=== PATIENT | female | born 1945 | race Caucasian/White ===

== ENCOUNTER → 2019-05-15 | Outpatient (REF) | payer MEDICARE ==
[2019-05-15 17:41] LABS: APPEARANCE, URINE CLOUDY (CLEAR); BACTERIA, URINE AUTO 2+ (NEGATIVE); BILIRUBIN, URINE AUTO NEGATIVE (NEGATIVE); BLOOD, URINE BLOOD NEGATIVE (NEGATIVE); CALCIUM OXALATE CRYSTALS SMALL; COLOR, URINE AMBER (YELLOW); GLUCOSE, URINE (UA) AUTO NEGATIVE (NEGATIVE); KETONE, URINE AUTO TRACE mg/dL (NEGATIVE); LEUKOCYTE ESTERASE, URINE AUTO 1+ (NEGATIVE); MUCUS, URINE SMALL (NEGATIVE); NITRITE, URINE AUTO POSITIVE (NEGATIVE); PROTEIN, URINE AUTO 1+ mg/dL (NEGATIVE); RBC, URINE AUTO 2 /HPF (0-3); SPECIFIC GRAVITY URINE AUTO 1.023 (1.002-1.035); SQUAMOUS EPITHELIAL CELL UR AU 1 /HPF (0-6); UROBILINOGEN, URINE AUTO 0.2 mg/dL (0.0-2.0); WBC, URINE AUTO 38 /HPF (0-3)
== END ==
LOC: M SFHCLACO 16:43
PROVIDERS: ATTEND Physician Assistant
DX: N30.01 Acute cystitis with hematuria (principal)

== ENCOUNTER 2019-08-22 13:08 | Emergency (ER) | payer MEDICARE ==
[~2019-08-22] VITALS: Ht 152.4 cm; Wt 55.9 kg
[2019-08-22] MEDS ORDERED: NS 1,000 ML IV SCH (13:19)
[2019-08-22] MEDS ORDERED: ACETAMINOPHEN 325 MG TAB PO ONE (13:30)
[2019-08-22] MEDS ORDERED: IPRATROPIUM 0.5MG/ALBUTEROL 2.5MG INH SOL UD 3ML (DUONEB)(J7620) NEB ONE (13:30)
[2019-08-22 13:42] LABS: VENOUS BASE EXCESS -5.3 (-2.0-2.0); VENOUS HCO3 20.7 MEQ/L (23.0-27.0); VENOUS O2 SATURATION 49.4 % (60.0-80.0); VENOUS PARTIAL PRESSURE CO2 42.3 mmHg (38.0-50.0); VENOUS PARTIAL PRESSURE O2 28.1 mmHg (30.0-50.0); VENOUS PH 7.308 UNITS (7.330-7.430); VENOUS STANDARD HCO3 19.1 MEQ/L
[2019-08-22 13:46] LABS: BASO % 0.3 % (0.0-1.0); EOS % 0.1 % (0.0-3.0); HEMATOCRIT 43.6 % (36.0-47.0); HEMOGLOBIN 13.4 g/dl (12.0-15.5); LYMPH # 2.1 10^3/uL (1.5-5.0); LYMPH % 19.2 % (24.0-44.0); MEAN CORPUSCULAR HEMOGLOBIN 29.4 pg (27.0-33.0); MEAN CORPUSCULAR HGB CONC 30.7 g/dl (32.0-36.5); MEAN CORPUSCULAR VOLUME 95.6 fl (80.0-96.0); MONO % 9.3 % (0.0-5.0); NEUTROPHILS # 7.6 10^3/uL (1.5-8.5); NEUTROPHILS % 70.7 % (36.0-66.0); PLATELET COUNT, AUTOMATED 219 10^3/uL (150-450); RED BLOOD COUNT 4.56 10^6/uL (4.00-5.40); WHITE BLOOD COUNT 10.8 10^3/uL (4.0-10.0)
[2019-08-22 13:57] VITALS: O2SAT 95
[2019-08-22 14:11] LABS: INFLUENZA A AMPLIFICATION NEGATIVE (NEGATIVE); INFLUENZA B AMPLIFICATION NEGATIVE (NEGATIVE)
[2019-08-22 14:21] LABS: ALBUMIN 3.2 GM/DL (3.2-5.2); ALT/SGPT 38 U/L (12-78); BILIRUBIN,DIRECT 0.3 MG/DL (0.0-0.2); BILIRUBIN,TOTAL 0.5 MG/DL (0.2-1.0); BLOOD UREA NITROGEN 16 MG/DL (7-18); CALCIUM LEVEL 8.9 MG/DL (8.8-10.2); CARBON DIOXIDE LEVEL 21 MEQ/L (21-32); CHLORIDE LEVEL 105 MEQ/L (98-107); CK-MB VALUE MASS < 1.0 NG/ML (<3.6); CPK CREATINE PHOSPHOKINASE 85 U/L (26-192); CREATININE FOR GFR 1.19 MG/DL (0.55-1.30); GLOMERULAR FILTRATION RATE 47.2 (>39); GLUCOSE, FASTING 152 MG/DL (70-100); MB/CK RELATIVE INDEX 1.18 (< OR =4); POTASSIUM SERUM 4.4 MEQ/L (3.5-5.1); SODIUM LEVEL 136 MEQ/L (136-145); TOTAL PROTEIN 7.8 GM/DL (6.4-8.2); TROPONIN I < 0.02 NG/ML (< 0.10)
--- NOTE | 2019-08-22 14:24 | REP ---
Clinical: Cough and dyspnea. Technique: AP and lateral. Findings: Mediastinum and cardiac silhouette are normal. Subtle right basilar atelectasis is suspected. No effusion. No pneumothorax. Skeletal structures intact. Impression: Subtle right basilar atelectasis. Electronically Signed by Kenny Whitten MD 08/22/2019 02:15 P
[2019-08-22] MEDS ORDERED: DOXY100C37 PO (14:49)
[2019-08-22] MEDS ORDERED: PROAAER10 INH (14:49)
[2019-08-22] MEDS ORDERED: DOXYCYCLINE HYCLATE 100 MG TAB PO ONE (15:00)
[2019-08-22] MEDS ORDERED: NORT75CA2 PO (15:06)
[2019-08-22] MEDS ORDERED: MUCI600T31 PO (15:06)
[2019-08-22] MEDS ORDERED: ACET-683 PO (15:06)
[2019-08-22] MEDS ORDERED: QUET1TAB7 PO (15:06)
[2019-08-22] MEDS ORDERED: CARV6.25 PO (15:06)
[2019-08-22] MEDS ORDERED: SENN1TAB41 PO (15:06)
[2019-08-22] MEDS ORDERED: DULO1CAP6 PO (15:06)
[2019-08-22] MEDS ORDERED: ROPI2TAB PO (15:06)
[2019-08-22] MEDS ORDERED: TAMI30CA PO (15:06)
[2019-08-22] MEDS ORDERED: QUET5TAB PO (15:06)
[2019-08-22] MEDS ORDERED: DITR5TAB PO (15:06)
[2019-08-22] MEDS ORDERED: QUET1TAB8 PO (15:06)
[2019-08-22] MEDS ORDERED: TRAM50TA2 PO (15:06)
[2019-08-22] MEDS ORDERED: VITA200028 PO (15:06)
[2019-08-22] MEDS ORDERED: DONETAB5 PO (15:06)
[2019-08-22] MEDS ORDERED: CVS5CHW2 PO (15:06)
[2019-08-22] MEDS ORDERED: ATOR40TA75 PO (15:06)
[2019-08-22 15:40] VITALS: BP 148/81
--- NOTE | 2019-08-22 20:19 | ECGEPIP ---
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
== END 2019-08-22 15:50 | disposition home or self-care (01) ==
LOC: EDBD 13:08 → M ED 13:08
DX: J84.9 Interstitial pulmonary disease, unspecified (principal); Z88.5 Allergy status to narcotic agent; Z88.8 Allergy status to other drugs, medicaments and biological substances

== ENCOUNTER 2019-08-24 13:53 | Observation (INO) | payer MEDICARE ==
[~2019-08-24] VITALS: Ht 147.3 cm; Wt 51.5 kg
[~2019-08-24 13:53] MED LIST: ACET-683 PO; ATOR40TA75 PO; CARV6.25 PO; CVS5CHW2 PO; DITR5TAB PO; DONETAB5 PO; DOXY100C37 PO; DULO1CAP6 PO; MUCI600T31 PO; NORT75CA2 PO; PROAAER10 INH; QUET1TAB7 PO; QUET1TAB8 PO; QUET5TAB PO; ROPI2TAB PO; SENN1TAB41 PO; TAMI30CA PO; TRAM50TA2 PO; VITA200028 PO
--- NOTE | 2019-08-24 15:44 | ECGEPIP ---
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
[2019-08-24 15:46] LABS: ABG BASE EXCESS -6.2 (-2.0-2.0); ABG HCO3 16.5 MEQ/L (22.0-26.0); ABG O2 SATURATION 94.5 % (95.0-99.0); ABG PARTIAL PRESSURE CO2 25.5 mmHg (35.0-45.0); ABG PARTIAL PRESSURE O2 71.9 mmHg (75.0-100.0); ABG STANDARD HCO3 19.3 MEQ/L (22.0-26.0); ABG TOTAL CO2 17.3 MEQ/L (23.0-31.0)
[2019-08-24] MEDS: IPRATROPIUM 0.5MG/ALBUTEROL 2.5MG INH SOL UD 3ML (DUONEB)(J7620) NEB SCH ×2 (15:55→15:59)
[2019-08-24] MEDS ORDERED: methylPREDNISolone INJ 125 MG/2 ML VIAL (J2930) IV ONE (16:30)
[2019-08-24] MEDS ORDERED: OXYB5TAB10 PO (17:19)
[2019-08-24] MEDS ORDERED: DOXY-259 PO (17:19)
[2019-08-24] MEDS ORDERED: PROAAER10 INH (17:19)
[2019-08-24] MEDS ORDERED: DONE5TAB82 PO (17:19)
[2019-08-24] MEDS ORDERED: OMEP-172 PO (17:19)
[2019-08-24] MEDS ORDERED: OSEL75CA2 PO (17:19)
[2019-08-24] MEDS ORDERED: MELA1TAB9 PO (17:19)
[2019-08-24] MEDS ORDERED: LORA-622 PO (17:19)
[2019-08-24] MEDS ORDERED: guaiFENesin ER 600 MG TAB PO PRN (17:30)
[2019-08-24] MEDS ORDERED: MOM 30ML SUSPENSION UDC PO PRN (17:30)
[2019-08-24] MEDS ORDERED: ACETAMINOPHEN TAB 650MG DOSE (2X325MG) PO PRN (17:30)
--- NOTE | 2019-08-24 17:40 | REP ---
Chest x-ray: Two views. History: Shortness of breath. Comparison study August 22, 2019. Findings: There is plate-like atelectasis again noted in the right base. No definite infiltrate. Pleural angles are sharp. There are surgical clips in the right upper quadrant of the abdomen. Heart size is normal. Pulmonary vasculature is not increased. Impression: Plate-like atelectasis right base. No definite infiltrate. Electronically Signed by Theodore Pedersen MD 08/24/2019 06:43 P
[2019-08-24 18:07] LABS: HEMATOCRIT 37.8 % (36.0-47.0); HEMOGLOBIN 12.1 g/dl (12.0-15.5); MEAN CORPUSCULAR HEMOGLOBIN 29.5 pg (27.0-33.0); MEAN CORPUSCULAR VOLUME 92.2 fl (80.0-96.0); PLATELET COUNT, AUTOMATED 279 10^3/uL (150-450); WHITE BLOOD COUNT 14.1 10^3/uL (4.0-10.0)
--- NOTE | 2019-08-24 18:12 | HPEPDOC ---
[facility] Medical History & Physical Date of Admission Aug 24, 2019 Date of Service: Aug 24, 2019 Primary Care Physician: Belkis Mcgee PA-C, LAC Attending Physician: SAMMI CAPONE MD History and Physical CHIEF COMPLAINT: Shortness of breath HISTORY OF PRESENT ILLNESS: Amalia Dutta is a 73 YO F with history of hypertension and environmental smoke exposure who presents with one-week shortness of breath, cough, sputum production, subjective fevers, chills and diarrhea. She first reported to the emergency room on 08/22/2019 and was sent home with 10 day prescription of doxycycline. She reports she previously was tested for the flu and found to be positive and was given Tamiflu. She reports she has been taking this medication, but does not feel any better. Today she reports her cough seems to have gotten worse to the point where she gets nauseous but has not vomited. She is producing yellow/green sputum. She reports feeling achy all over her body. She does have chronic pain in her neck and her back and she reports that both are worse at this time. She is originally from [place] but currently living with her daughter in [place]. PAST MEDICAL HISTORY: 1. HTN 2. Stress-Induced Cardiomyopathy 3. Dementia with behavioral disturbance 4. Bipolar affective disorder 5. Hoarding disorder 6. PTSD 7. HLD 8. Chronic constipation 9. Normocytic anemia 10. Restless leg syndrome 11. Chronic back/neck pain 12. Vitamin D deficiency 13. Environmental/seasonal allergies PAST SURGICAL HISTORY: 1. Hysterectomy 2. Abdominal hernia repair 3. x4 SOCIAL HISTORY: Never smoker but lives in home with heavy smoke exposure, denies EtOH, denies other drugs FAMILY HISTORY: noncontributory ALLERGIES: Please see below. REVIEW OF SYSTEMS: CONSTITUTIONAL: Her body feels achy, and she feels very tired. HEENT: denies vision changes, no sinus problems, denies any trouble swallowing CARDIOVASCULAR: no palpitations RESPIRATORY: Reports shortness of breath, cough, mucus production GENITOURINARY: No dysuria MUSCULOSKELETAL: Denies any joint/muscle pain GASTROINTESTINAL: Denies abdominal pain, denies nausea, vomiting, but does report some diarrhea SKIN: No new rashes or lesions NEUROLOGICAL: No loss of sensation PSYCHIATRIC: Reports normal mood, no delusions or hallucinations ENDOCRINE: No hot/cold intolerance HEMATOLOGIC/LYMPHATIC: No easy bruising, no lumps/bumps ALLERGIC/IMMUNOLOGIC: No sinus symptoms HOME MEDICATIONS: Please see below. PHYSICAL EXAMINATION: VITAL SIGNS: Please see below. GENERAL APPEARANCE: Laying in bed, appears stated age, no acute distress, calm, cooperative, very hard of hearing HEENT: EOMI, PERRLA, neck is supple with no thyromegaly or lymphadenopathy RESPIRATORY: There is diffuse rhonchi appreciated in all lung piña. Exam is complicated by frequent coughing and sputum production. CARDIOVASCULAR: no JVD, RRR, no murmurs/rubs/gallops ABDOMEN: Soft, nontender to palpation in all four quadrants, no m asses/organomegaly EXTREMITIES: no clubbing, cyanosis or edema noted NEUROLOGICAL: No obvious focal deficits PSYCHIATRIC: normal mood/affect Skin: No rashes or ulcers. LN: No significant cervical or inguinal lymphadenopathy LABORATORY DATA: See below. IMAGING: CXR (08/22/19): Findings: Mediastinum and cardiac silhouette are normal. Subtle right basilar atelectasis is suspected. No effusion. No pneumothorax. Skeletal structures intact. Impression: Subtle right basilar atelectasis CXR (08/24/19): Findings: There is plate-like atelectasis again noted in the right base. No definite infiltrate. Pleural angles are sharp. There are surgical clips in the right upper quadrant of the abdomen. Heart size is normal. Pulmonary vasculature is not increased. Impression: Plate-like atelectasis right base. No definite infiltrate. MICROBIOLOGY: Please see below. ASSESSMENT: This is a 73 YO F with history of HTN, dementia and environmental smoke exposure who presents with several days SOB, cough with sputum production, subjective fevers and chills recently initiated on treatment for pneumonia who presents again with worsening symptoms. She will be admitted for continued treatment of respiratory syncytial virus. PLAN: 1., Shortness of breath secondary to respiratory syncytial virus versus community acquired pneumonia: -AB.12/14/[birth year] -Continue course of Doxycycline 100mg BID previously prescribed, she has 8 days remaining -Prednisone 40 mg -Oxygen titration to greater than 90% -Acapella, Mucinex for mucociliary clearance -Sputum culture pending -CBC, lactic acid, pro-calcitonin pending -Continue DuoNebs PRN 2. Dementia: -Continue Donepezil 3. Chronic Pain: -Continue Tramadol DVT PPX: SQH DISPO: Pending clinical improvement Vital Signs Vital Signs Date Time Temp Pulse Resp B/P (MAP) Pulse Ox O2 Delivery O2 Flow Rate FiO2 08/24/19 14:34 89 22 144/80 (101) 92 Room Air 08/24/19 14:34 2.0 08/24/19 14:05 98.9 Laboratory Data Labs 24H Laboratory Tests 2 08/24/19 15:20: Blood Gas Bicarbonate Standard 19.3L, Arterial Blood pH 7.430, Arterial Blood Partial Pressure CO2 25.5L, Arterial Blood Partial Pressure O2 71.9L, Arterial Blood Total CO2 17.3L, Arterial Blood HCO3 16.5L, Arterial Blood Base Excess - 6.2L, Arterial Blood Oxygen Saturation 94.5L 08/24/19 15:52: JJ-Rua-Q-Type Natriuretic Peptide 54 Microbiology Microbiology 08/24/19 Respiratory Virus Panel (PCR) (BECKY) - Final, Complete Respiratory Syncytial Virus Home Medications Scheduled Acetaminophen (Acetaminophen) 500 Mg Tablet, 500 MG PO TID Atorvastatin Calcium (Atorvastatin Calcium) 40 Mg Tablet, 40 MG PO QHS Carvedilol (Carvedilol) 6.25 Mg Tablet, 6.25 MG PO BID Donepezil HCl (Donepezil HCl) 5 Mg Tablet, 5 MG PO QHS Doxycycline Hyclate (Doxycycline Hyclate) 100 Mg Tablet.dr, 100 MG PO Q12H FILLED 08/22/19 FOR 10 DAYS Duloxetine Hcl (Duloxetine HCl) 60 Mg Capsule.dr, 60 MG PO DAILY Ergocalciferol (Vitamin D2) (Vitamin D2) 2,000 Unit Tablet, 50,000 UNIT PO QMONTH TAKES LAST WEEK OF EVERY MONTH - NO SET DAY Loratadine (Loratadine) 10 Mg Tablet, 10 MG PO DAILY Melatonin (Melatonin) 5 Mg Tablet, 5 MG PO QHS Nortriptyline HCl (Nortriptyline HCl) 75 Mg Capsule, 75 MG PO QHS Omeprazole (Omeprazole) 20 Mg Capsule.dr, 20 MG PO DAILY Oseltamivir Phosphate (Oseltamivir Phosphate) 75 Mg Capsule, 75 MG PO BID FILLED 08/20/19 FOR 5 DAYS Oxybutynin Chloride (Oxybutynin Chloride) 5 Mg Tablet, 5 MG PO QHS Prednisone (Prednisone) 10 Mg Tablet, 10 MG PO TAPER Take 4 tabs daily x 3 days, then 3 tabs daily x 3 days, then 2 tabs daily x 3 days, then 1 tab daily x 3 days and stop Quetiapine Fumarate (Quetiapine Fumarate) 100 Mg Tablet, 100 MG PO BID 175MG TOTAL BID Quetiapine Fumarate (Quetiapine Fumarate) 50 Mg Tablet, 50 MG PO BID 175MG TOTAL BID Quetiapine Fumarate (Quetiapine Fumarate) 25 Mg Tablet, 25 MG PO BID 175MG TOTAL BID Ropinirole HCl (Ropinirole HCl) 2 Mg Tablet, 2 MG PO QPM Sennosides/Docusate Sodium (Senna-S Tablet) 1 Each Tablet, 2 TAB PO DAILY Tramadol HCl (Tramadol HCl) 50 Mg Tablet, 50 MG PO 5XD ABOUT 4 HOURS APART Scheduled PRN Albuterol Sulfate (Proair Hfa) 8.5 Gm Hfa.aer.ad, 2 PUFF INH QID PRN for SHORTNESS OF BREATH Guaifenesin (Mucinex) 600 Mg Tab.er.12h, 600 MG PO BID PRN for COUGH Allergies Coded Allergies: morphine (Verified Allergy, Mild, itch, 08/22/19) promethazine (Verified Allergy, Unknown, 08/24/19) A-FIB/CHADSVASC A-FIB History Current/History of A-Fib/PAF?: No GME ATTESTATION GME ATTESTATION My faculty preceptor for this patient encounter was physically present during the encounter and was fully available. All aspects of the patient interview, examination, medical decision making process, and medical care plan development were reviewed and approved by the faculty preceptor. The faculty preceptor is aware and concurs with the plan as stated in the body of this note and will attest to such by his/her cosignature. ATTENDING NOTE I, Sammi Capone, have independently examined this patient and performed my own physical exam, as well as reviewed the documentation and edited where necessary. I have discussed in detail with the resident / student the findings and plan of treatment as documented by the resident / student and edited their note. I agree with their findings and treatment plan and have edited their documentation. I will continue to follow the patient during this hospital stay. NHI STALLINGS MD Aug 24, 2019 18:12 SAMMI CAPONE MD Aug 25, 2019 13:00
[2019-08-24 18:34] VITALS: BP 126/78
[2019-08-24 18:56] LABS: ALBUMIN 2.8 GM/DL (3.2-5.2); BILIRUBIN,TOTAL 0.3 MG/DL (0.2-1.0); CALCIUM LEVEL 8.9 MG/DL (8.8-10.2); CREATININE FOR GFR 1.02 MG/DL (0.55-1.30); GLOMERULAR FILTRATION RATE 56.4 (>39); POTASSIUM SERUM 3.8 MEQ/L (3.5-5.1); TOTAL PROTEIN 7.3 GM/DL (6.4-8.2)
[2019-08-24 19:03] LABS: ATYPICAL LYMPH 10 % (0-5); EOSINOPHILS 2 % (0-3); LYMPHOCYTES 25 % (16-44); MONOCYTES 2 % (0-5); NEUTROPHILS 60 % (28-66); PLATELET ESTIMATE NORMAL (NORMAL); SMUDGE CELLS 1+
[2019-08-24 19:04] LABS: OVALOCYTES 1+; POIKILOCYTOSIS 1+; POLYCHROMASIA 1+
[2019-08-24] MEDS: IPRATROPIUM 0.5MG/ALBUTEROL 2.5MG INH SOL UD 3ML (DUONEB)(J7620) INH SCH ×2 (19:21→23:36)
[2019-08-24] MEDS: HEPARIN SOD (PORCINE) 5000 UNITS/ML VIAL SC SCH (20:10)
[2019-08-24] MEDS: CARVedilol 6.25 MG TAB PO SCH (20:10)
[2019-08-24] MEDS: QUEtiapine FUMARATE 50 MG TAB PO SCH (20:11)
[2019-08-24] MEDS: DOXYCYCLINE HYCLATE 100 MG TAB PO SCH (20:11)
[2019-08-24] MEDS: QUEtiapine FUMARATE 100 MG TAB PO SCH (20:11)
[2019-08-24] MEDS: DOCUSATE SODIUM 100 MG CAP PO SCH (20:12)
[2019-08-24] MEDS: traMADol 50 MG TAB PO SCH (20:12)
[2019-08-24] MEDS ORDERED: NORTRIPTYLINE 25 MG CAP PO SCH (21:00)
[2019-08-24] MEDS ORDERED: DONEPEZIL 5 MG TAB PO SCH (21:00)
[2019-08-24] MEDS ORDERED: ATORVASTATIN 20 MG TAB PO SCH (21:00)
[2019-08-24] MEDS ORDERED: rOPINIRole 1MG TAB PO SCH (21:00)
[2019-08-24 22:00] VITALS: BP 148/93
[2019-08-24 23:00] VITALS: BP 145/93
[2019-08-25 02:00] VITALS: BP 123/85
[2019-08-25] MEDS: IPRATROPIUM 0.5MG/ALBUTEROL 2.5MG INH SOL UD 3ML (DUONEB)(J7620) INH SCH ×2 (04:00→07:24)
[2019-08-25 06:00] VITALS: BP 129/82
[2019-08-25] MEDS: traMADol 50 MG TAB PO SCH ×2 (06:10→08:46)
[2019-08-25 06:35] LABS: HEMATOCRIT 38.8 % (36.0-47.0); HEMOGLOBIN 12.3 g/dl (12.0-15.5); MEAN CORPUSCULAR HEMOGLOBIN 29.2 pg (27.0-33.0); MEAN CORPUSCULAR HGB CONC 31.7 g/dl (32.0-36.5); MEAN CORPUSCULAR VOLUME 92.2 fl (80.0-96.0); PLATELET COUNT, AUTOMATED 291 10^3/uL (150-450); RED BLOOD COUNT 4.21 10^6/uL (4.00-5.40); WHITE BLOOD COUNT 13.7 10^3/uL (4.0-10.0)
[2019-08-25 06:57] LABS: CALCIUM LEVEL 9.2 MG/DL (8.8-10.2); CREATININE FOR GFR 0.98 MG/DL (0.55-1.30); GLOMERULAR FILTRATION RATE 59.1 (>39); POTASSIUM SERUM 3.8 MEQ/L (3.5-5.1)
[2019-08-25] MEDS: QUEtiapine FUMARATE 50 MG TAB PO SCH (08:44)
[2019-08-25] MEDS: DOCUSATE SODIUM 100 MG CAP PO SCH (08:44)
[2019-08-25] MEDS: QUEtiapine FUMARATE 100 MG TAB PO SCH (08:44)
[2019-08-25] MEDS: DOXYCYCLINE HYCLATE 100 MG TAB PO SCH (08:44)
[2019-08-25 08:45] VITALS: BP 120/84
[2019-08-25] MEDS: CARVedilol 6.25 MG TAB PO SCH (08:45)
[2019-08-25] MEDS: HEPARIN SOD (PORCINE) 5000 UNITS/ML VIAL SC SCH (08:46)
[2019-08-25] MEDS ORDERED: predniSONE 20 MG TAB PO ONE (09:00)
[2019-08-25] MEDS ORDERED: DULoxetine 30 MG CAP (CYMBALTA) PO SCH (09:00)
[2019-08-25] MEDS ORDERED: predniSONE 20 MG TAB PO SCH (09:00)
[2019-08-25] MEDS ORDERED: OMEPRAZOLE 20 MG CAP PO SCH (09:00)
[2019-08-25] MEDS ORDERED: PRED10TA2 PO (09:43)
[2019-08-25] MEDS ORDERED: DOXY-259 PO (09:43)
[2019-08-25 10:00] VITALS: BP 133/90
--- NOTE | 2019-08-25 11:44 | DS.PDOC ---
Discharge Summary General Date of Admission Aug 24, 2019 at 13:54 Date of Discharge August 25, 2019 Primary Care Physician: Belkis Mcgee PA-C, LAC Attending Physician: SAMMI CAPONE MD Discharge Summary PROCEDURES PERFORMED DURING STAY: [None]. ADMITTING DIAGNOSES: 1. shortness of breath DISCHARGE DIAGNOSES: 1. Respiratory syncytial virus vs community-acquired PNA 2. COPD exacerbation COMPLICATIONS/CHIEF COMPLAINT: Shortness Of Breath. HISTORY OF PRESENT ILLNESS: Amalia Dutta is a 73 YO F with history of hypertension and environmental smoke exposure who presents with one-week shortness of breath, cough, sputum production, subjective fevers, chills and diarrhea. She first reported to the emergency room on 08/22/2019 and was sent home with 10 day prescription of doxycycline. She reports she previously was tested for the flu and found to be positive and was given Tamiflu. She reports she has been taking this medication, but does not feel any better. Today she reports her cough seems to have gotten worse to the point where she gets nauseous but has not vomited. She is producing yellow/green sputum. She reports feeling achy all over her body. She does have chronic pain in her neck and her back and she reports that both are worse at this time. She is originally from [place] but currently living with her daughter in [place]. HOSPITAL COURSE: Patient was admitted for shortness of breath and cough in setting of environmental smoke exposure found to have positive respiratory viral panel for RSV. She was continued on antibiotic, doxycycline for full 10 day course, started on prednisone taper, and home medications were continued. On HD #2, her shortness of breath and cough had improved and she cleared PT evaluation. She was discharged home with plan to follow up with her PCP within 2 weeks and to complete full course of Doxycycline and Prednisone. DISCHARGE MEDICATIONS: Please see below. ALLERGIES: Please see below. PHYSICAL EXAMINATION ON DISCHARGE: VITAL SIGNS: Please see below. GENERAL APPEARANCE: Laying in bed, appears stated age, no acute distress, calm, cooperative, very hard of hearing HEENT: EOMI, PERRLA, neck is supple with no thyromegaly or lymphadenopathy RESPIRATORY: There is diffuse rhonchi appreciated in all lung piña. Exam is complicated by frequent coughing and sputum production. CARDIOVASCULAR: no JVD, RRR, no murmurs/rubs/gallops ABDOMEN: Soft, nontender to palpation in all four quadrants, no masses/organomegaly EXTREMITIES: no clubbing, cyanosis or edema noted NEUROLOGICAL: No obvious focal deficits PSYCHIATRIC: normal mood/affect Skin: No rashes or ulcers. LN: No significant cervical or inguinal lymphadenopathy LABORATORY DATA: Please see below. IMAGING: CXR (08/22/19): Findings: Mediastinum and cardiac silhouette are normal. Subtle right basilar atelectasis is suspected. No effusion. No pneumothorax. Skeletal structures intact. Impression: Subtle right basilar atelectasis CXR (08/24/19): Findings: There is plate-like atelectasis again noted in the right base. No definite infiltrate. Pleural angles are sharp. There are surgical clips in the right upper quadrant of the abdomen. Heart size is normal. Pulmonary vasculature is not increased. Impression: Plate-like atelectasis right base. No definite infiltrate. PROGNOSIS: fair ACTIVITY: [As tolerated]. DIET: as tolerated DISCHARGE PLAN: Home DISPOSITION: Home, Self-Care. DISCHARGE INSTRUCTIONS: 1. Follow up with PCP within 2 weeks 2. Return to the ER if you experience any problems ITEMS TO FOLLOWUP ON ON OUTPATIENT: 1. None DISCHARGE CONDITION: [Stable]. TIME SPENT ON DISCHARGE: Greater than 30 minutes. Vital Signs/I&Os Vital Signs Date Time Temp Pulse Resp B/P (MAP) Pulse Ox O2 Delivery O2 Flow Rate FiO2 08/25/19 10:00 83 18 133/90 (104) 92 Room Air 08/25/19 06:10 2.0 08/25/19 06:00 97.7 I&O- Last 24 Hours up to 6 AM 08/25/19 06:00 Intake Total 270 ml Output Total 550 ml Balance -280 ml Laboratory Data Labs 24H Laboratory Tests 2 08/24/19 15:20: Blood Gas Bicarbonate Standard 19.3L, Arterial Blood pH 7.430, Arterial Blood Partial Pressure CO2 25.5L, Arterial Blood Partial Pressure O2 71.9L, Arterial Blood Total CO2 17.3L, Arterial Blood HCO3 16.5L, Arterial Blood Base Excess - 6.2L, Arterial Blood Oxygen Saturation 94.5L 08/24/19 15:52: BU-Ocv-K-Type Natriuretic Peptide 54 08/24/19 17:53: Nucleated Red Blood Cells % (auto) 0.3H, Neutrophils 60, Band Neutrophils 1, Lymphocytes (Manual) 25, Monocytes (Manual) 2, Eosinophils (Manual) 2, Atypical Lymphocytes 10H, Polychromasia 1+, Poikilocytosis 1+, Ovalocytes 1+, Smudge Cells 1+, Platelet Estimate NORMAL, Anion Gap 14, Glomerular Filtration Rate 56.4, Lactic Acid Level 1.4, Calcium Level 8.9, Magnesium Level 2.0, Total Bilirubin 0.3, Aspartate Amino Transf (AST/SGOT) 40H, Alanine Aminotransferase (ALT/SGPT) 30, Alkaline Phosphatase 116, Total Protein 7.3, Albumin 2.8L, Albumin/Globulin Ratio 0.62L 08/24/19 21:35: Urine Color YELLOW, Urine Appearance CLEAR, Urine pH 6.0, Urine Specific [place] 1.019, Urine Protein 2+H, Urine Glucose (UA) NEGATIVE, Urine Ketones TRACEH, Urine Blood 1+H, Urine Nitrite NEGATIVE, Urine Bilirubin NEGATIVE, Urine Urob ilinogen 0.2, Urine Leukocyte Esterase NEGATIVE, Urine WBC (Auto) 9H, Urine RBC (Auto) 6H, Urine Hyaline Casts (Auto) 0, Urine Bacteria (Auto) NEGATIVE, Urine Squamous Epithelial Cells 0, Urine Sperm (Auto) 08/25/19 05:49: Nucleated Red Blood Cells % (auto) 0.0, Anion Gap 10, Glomerular Filtration Rate 59.1, Calcium Level 9.2 CBC/BMP Laboratory Tests 08/24/19 17:53 08/25/19 05:49 Microbiology Microbiology 08/24/19 Respiratory Virus Panel (PCR) (BECKY) - Final, Complete Respiratory Syncytial Virus Discharge Medications Scheduled Acetaminophen (Acetaminophen) 500 Mg Tablet, 500 MG PO TID, (Reported) Atorvastatin Calcium (Atorvastatin Calcium) 40 Mg Tablet, 40 MG PO QHS, (Reported) Carvedilol (Carvedilol) 6.25 Mg Tablet, 6.25 MG PO BID, (Reported) Donepezil HCl (Donepezil HCl) 5 Mg Tablet, 5 MG PO QHS, (Reported) Doxycycline Hyclate (Doxycycline Hyclate) 100 Mg Tablet.dr, 100 MG PO Q12H FILLED 08/22/19 FOR 10 DAYS Duloxetine Hcl (Duloxetine HCl) 60 Mg Capsule.dr, 60 MG PO DAILY, (Reported) Ergocalciferol (Vitamin D2) (Vitamin D2) 2,000 Unit Tablet, 50,000 UNIT PO QMON TH, (Reported) TAKES LAST WEEK OF EVERY MONTH - NO SET DAY Loratadine (Loratadine) 10 Mg Tablet, 10 MG PO DAILY, (Reported) Melatonin (Melatonin) 5 Mg Tablet, 5 MG PO QHS, (Reported) Nortriptyline HCl (Nortriptyline HCl) 75 Mg Capsule, 75 MG PO QHS, (Reported) Omeprazole (Omeprazole) 20 Mg Capsule.dr, 20 MG PO DAILY, (Reported) Oseltamivir Phosphate (Oseltamivir Phosphate) 75 Mg Capsule, 75 MG PO BID, (Reported) FILLED 08/20/19 FOR 5 DAYS Oxybutynin Chloride (Oxybutynin Chloride) 5 Mg Tablet, 5 MG PO QHS, (Reported) Prednisone (Prednisone) 10 Mg Tablet, 10 MG PO TAPER Take 4 tabs daily x 3 days, then 3 tabs daily x 3 days, then 2 tabs daily x 3 days, then 1 tab daily x 3 days and stop Quetiapine Fumarate (Quetiapine Fumarate) 100 Mg Tablet, 100 MG PO BID, (Reported) 175MG TOTAL BID Quetiapine Fumarate (Quetiapine Fumarate) 50 Mg Tablet, 50 MG PO BID, (Reported) 175MG TOTAL BID Quetiapine Fumarate (Quetiapine Fumarate) 25 Mg Tablet, 25 MG PO BID, (Reported) 175MG TOTAL BID Ropinirole HCl (Ropinirole HCl) 2 Mg Tablet, 2 MG PO QPM, (Reported) Sennosides/Docusate Sodium (Senna-S Tablet) 1 Each Tablet, 2 TAB PO DAILY, (Reported) Tramadol HCl (Tramadol HCl) 50 Mg Tablet, 50 MG PO 5XD, (Reported) ABOUT 4 HOURS APART Scheduled PRN Albuterol Sulfate (Proair Hfa) 8.5 Gm Hfa.aer.ad, 2 PUFF INH QID PRN for SHORTNESS OF BREATH, (Reported) Guaifenesin (Mucinex) 600 Mg Tab.er.12h, 600 MG PO BID PRN for COUGH, (Reported) Allergies Coded Allergies: morphine (Verified Allergy, Mild, itch, 08/22/19) promethazine (Verified Allergy, Unknown, 08/24/19) GME ATTESTATION GME ATTESTATION My faculty preceptor for this patient encounter was physically present during the encounter and was fully available. All aspects of the patient interview, examination, medical decision making process, and medical care plan development were reviewed and approved by the faculty preceptor. The faculty preceptor is aware and concurs with the plan as stated in the body of this note and will attest to such by his/her cosignature. ATTENDING NOTE I, Sammi Capone, have independently examined this patient and performed my own physical exam, as well as reviewed the documentation and edited where necessary. I have discussed in detail with the resident / student the findings and plan of treatment as documented by the resident / student and edited their note. I agree with their findings and treatment plan and have edited their documentation. I will continue to follow the patient during this hospital stay. Time spent on discharge 28 minutes NHI STALLINGS MD Aug 25, 2019 11:44 SAMMI CAPONE MD Aug 25, 2019 13:24
== END 2019-08-25 11:07 | disposition home or self-care (01) ==
LOC: M ED 13:53 → M ED INP 13:54 → ENRESERVDT 18:06 → ENRESERVTM 18:06 → M MSPAV 18:23
PROVIDERS: ADMIT Internal Medicine; ATTEND Internal Medicine
DX: J44.1 Chronic obstructive pulmonary disease with (acute) exacerbation (principal); B97.4 Respiratory syncytial virus as the cause of diseases classified elsewhere; I10 Essential (primary) hypertension; I51.81 Takotsubo syndrome; F42.3 Hoarding disorder; F43.10 Post-traumatic stress disorder, unspecified; F31.9 Bipolar disorder, unspecified; D64.9 Anemia, unspecified; G25.81 Restless legs syndrome; E55.9 Vitamin D deficiency, unspecified; E78.49 Other hyperlipidemia; Z79.899 Other long term (current) drug therapy; Z88.5 Allergy status to narcotic agent; Z88.8 Allergy status to other drugs, medicaments and biological substances
CPT/HCPCS: 36415; 71046; 80048; 80053; 81001; 82803; 83605; 83735; 83880; 85025; 85027; 87486; 87581; 87633; 87798; 93005; 94640; 96372; 96374; 97161; 99284; G0378; J2930

== ENCOUNTER → 2020-01-08 | Outpatient (REF) | payer MEDICARE ==
[~2020-01-08] MED LIST changes: +DONE5TAB82 PO; +DOXY-259 PO; +FLON1SPR NARES; +LATA0.0015 OU; +LORA-622 PO; +MELA1TAB9 PO; +OMEP-218 PO; +OMEP1CAP73 PO; +OSEL75CA2 PO; +OXYB5TAB10 PO; +PRED10TA2 PO; +QUET100T2 PO; -QUET1TAB8 PO; -ROPI2TAB PO; +ROPI2TAB3 PO; +VITA50005 PO; +[UNRECOGNIZED DRUG - OTHER] PO
[2020-01-08 18:06] LABS: APPEARANCE, URINE CLOUDY (CLEAR); BACTERIA, URINE AUTO 1+ (NEGATIVE); BILIRUBIN, URINE AUTO NEGATIVE (NEGATIVE); BLOOD, URINE BLOOD NEGATIVE (NEGATIVE); COLOR, URINE YELLOW (YELLOW); GLUCOSE, URINE (UA) AUTO NEGATIVE (NEGATIVE); KETONE, URINE AUTO TRACE mg/dL (NEGATIVE); LEUKOCYTE ESTERASE, URINE AUTO 3+ (NEGATIVE); NITRITE, URINE AUTO NEGATIVE (NEGATIVE); PROTEIN, URINE AUTO 1+ mg/dL (NEGATIVE); RBC, URINE AUTO 10 /HPF (0-3); SPECIFIC GRAVITY URINE AUTO 1.017 (1.002-1.035); SQUAMOUS EPITHELIAL CELL UR AU 1 /HPF (0-6); UROBILINOGEN, URINE AUTO 0.2 mg/dL (0.0-2.0); WBC, URINE AUTO TNTC /HPF (0-3)
== END ==
LOC: M SFHCLACO 16:45
PROVIDERS: ATTEND Physician Assistant
DX: N30.01 Acute cystitis with hematuria (principal)
CPT/HCPCS: 81001; 81002; 87088; 87186; G0463

== ENCOUNTER 2020-01-21 20:40 | Inpatient (IN) | payer MEDICARE ==
[~2020-01-21] VITALS: Ht 142.2 cm; Wt 57.4 kg
[~2020-01-21 20:40] MED LIST changes: -FLON1SPR NARES; -LATA0.0015 OU; -OMEP-218 PO; -VITA50005 PO; -[UNRECOGNIZED DRUG - OTHER] PO
[2020-01-21] MEDS: QUEtiapine FUMARATE 100 MG TAB PO SCH (21:00)
[2020-01-21] MEDS: QUEtiapine FUMARATE 50 MG TAB PO SCH (21:00)
[2020-01-21] MEDS: CARVedilol 6.25 MG TAB PO SCH (21:00)
[2020-01-21] MEDS: QUEtiapine FUMARATE 25 MG TAB PO SCH (21:00)
--- NOTE | 2020-01-21 21:21 | REPVR ---
PROCEDURE INFORMATION: Exam: CT Head Without Contrast Exam date and time: 01/21/2020 9:08 PM Age: 74 years old Clinical indication: Injury or trauma; Fall; Initial encounter; Blunt trauma (contusions or hematomas) TECHNIQUE: Imaging protocol: Computed tomography of the head without contrast. Radiation optimization: All CT scans at this facility use at least one of these dose optimization techniques: automated exposure control; mA and/or kV adjustment per patient size (includes targeted exams where dose is matched to clinical indication); or iterative reconstruction. COMPARISON: No relevant prior studies available. FINDINGS: Brain: Mild cerebral volume loss. Old right basal ganglia lacunar infarct. No hemorrhage. Unremarkable white matter. No mass effect. Ventricles: Normal. No ventriculomegaly. Bones/joints: Unremarkable. No acute fracture. Sinuses: Visualized sinuses are unremarkable. No fluid levels. Mastoid air cells: Visualized mastoid air cells are well aerated. Soft tissues: Unremarkable. IMPRESSION: No acute intracranial abnormality. Electronically signed by: Mateusz Salinas On 01/21/2020 21:21:06 PM
--- NOTE | 2020-01-21 21:26 | REPVR ---
PROCEDURE INFORMATION: Exam: CT Cervical Spine Without Contrast Exam date and time: 01/21/2020 9:08 PM Age: 74 years old Clinical indication: Injury or trauma; Fall; Initial encounter; Blunt trauma TECHNIQUE: Imaging protocol: Computed tomography images of the cervical spine without contrast. Radiation optimization: All CT scans at this facility use at least one of these dose optimization techniques: automated exposure control; mA and/or kV adjustment per patient size (includes targeted exams where dose is matched to clinical indication); or iterative reconstruction. COMPARISON: No relevant prior studies available. FINDINGS: Vertebrae: No acute fracture or malalignment. No spinal stenosis. Mild facet DJD. Degenerative disc space narrowing at C5-C6 and C6-C7. Remaining disc spaces appear well maintained. Soft tissues: Unremarkable. Lungs: Lung apices are normal. IMPRESSION: 1. No fracture or malalignment. 2. Mild degenerative spondylosis. Electronically signed by: Mateusz Salinas On 01/21/2020 21:25:38 PM
[2020-01-21] MEDS ORDERED: FLON1SPR NARES (22:06)
[2020-01-21] MEDS ORDERED: [UNRECOGNIZED DRUG - OTHER] PO (22:06)
[2020-01-21] MEDS ORDERED: AMMONIA AROMATIC INHALANT As Ordered ONE (22:51)
[2020-01-21 23:48] LABS: HEMATOCRIT 37.4 % (36.0-47.0); HEMOGLOBIN 12.1 g/dl (12.0-15.5); MEAN CORPUSCULAR HEMOGLOBIN 29.4 pg (27.0-33.0); MEAN CORPUSCULAR HGB CONC 32.4 g/dl (32.0-36.5); MEAN CORPUSCULAR VOLUME 90.8 fl (80.0-96.0); PLATELET COUNT, AUTOMATED 264 10^3/uL (150-450); RED BLOOD COUNT 4.12 10^6/uL (4.00-5.40); WHITE BLOOD COUNT 8.3 10^3/uL (4.0-10.0)
[2020-01-22] MEDS ORDERED: LATA0.0015 OU (00:34)
[2020-01-22] MEDS ORDERED: OMEP-218 PO (00:34)
[2020-01-22] MEDS ORDERED: VITA50005 PO (00:36)
--- NOTE | 2020-01-22 01:20 | HPEPDOC ---
General Date of Admission Jan 22, 2020 at 01:01 Date of Service: Jan 22, 2020 Chief Complaint The patient is a 74-year-old female admitted with a reason for visit of FALL. Source: Patient, RN/MD Exam Limitations: No limitations Timing/Duration: Other (not applicable) Severity: Other (not applicable) Associated Symptoms: Other (. Frequent falls) History of Present Illness This is a 73 years old white female with past medical history of hypertension. Stress-induced cardiomyopathy. Dementia with behavior disturbance. Bipolar affective disorder hoarding disorder, PTSD, hyperlipidemia, chronic constipation. Normocytic anemia, restless leg syndrome, chronic back and neck pain, vitamin D deficiency, seasonal allergies, headaches has experienced frequent falls recently. Patient had 3 falls and today the third fall, she was walking down the steps and she fell, hitting her head. Patient came with chief complaints of a left elbow, left hip and left knee pain and right arm and low back pain. Patient denies chest pain, shortness of breath, nausea, vomiting. Patient's family is unable to take care of for her home and are requesting admission to a senior care facility. Patient is not a good historian. History was obtained from Georges RN and the medical records Home Medications Scheduled Acetaminophen (Acetaminophen) 500 Mg Tablet, 500 MG PO TID, (Reported) Atorvastatin Calcium (Atorvastatin Calcium) 40 Mg Tablet, 40 MG PO QHS, (Reported) Carvedilol (Carvedilol) 6.25 Mg Tablet, 6.25 MG PO BID, (Reported) Donepezil HCl (Donepezil HCl) 5 Mg Tablet, 5 MG PO QHS, (Reported) Duloxetine Hcl (Duloxetine HCl) 60 Mg Capsule.dr, 60 MG PO DAILY, (Reported) Ergocalciferol (Vitamin D2) (Vitamin D2) 50,000 Units Cap, 50,000 UNITS PO QMONTH, (Reported) LAST WEEK OF EVERY MONTH Fluticasone Propionate (Flonase Allergy Relief) 9.9 Ml [place].susp, 2 SPRAY NARES DAILY, (Reported) Latanoprost/Pf (Latanoprost 0.005% Eye Drop) 7.5 Ml Drops, 1 DROP OU QHS, (Reported) Melatonin (Melatonin) 5 Mg Tablet, 5 MG PO QHS, (Reported) Nortriptyline HCl (Nortriptyline HCl) 75 Mg Capsule, 75 MG PO QHS, (Reported) Omeprazole (Omeprazole) 20 Mg Capsule.dr, 20 MG PO DAILY, (Reported) Oxybutynin Chloride (Oxybutynin Chloride) 5 Mg Tablet, 5 MG PO QHS, (Reported) Quetiapine Fumarate (Quetiapine Fumarate) 100 Mg Tablet, 100 MG PO BID, (Reported) 175MG TOTAL BID Quetiapine Fumarate (Quetiapine Fumarate) 50 Mg Tablet, 50 MG PO BID, (Reported) 175MG TOTAL BID Quetiapine Fumarate (Quetiapine Fumarate) 25 Mg Tablet, 25 MG PO BID, (Reported) 175MG TOTAL BID Ropinirole HCl (Ropinirole HCl) 2 Mg Tablet, 2 MG PO QPM, (Reported) Sennosides/Docusate Sodium (Senna-S Tablet) 1 Each Tablet, 2 TAB PO DAILY, (Reported) Tramadol HCl (Tramadol HCl) 50 Mg Tablet, 50 MG PO 5XD, (Reported) ABOUT 4 HOURS APART [chlopheniramine] , 4 MG PO DAILY, (Reported) Scheduled PRN Albuterol Sulfate (Proair Hfa) 8.5 Gm Hfa.aer.ad, 2 PUFF INH QID PRN for SHORTNESS OF BREATH, (Reported) Allergies Coded Allergies: promethazine (Verified Allergy, Unknown, 08/24/19) zolpidem (Verified Adverse Reaction, Mild, Pt reports it makes her too drowsy, 01/21/20) Past Medical History Medical History Hypertension, cardiomyopathy, dementia, bipolar disorder. According disorder, PTSD, hyperlipidemia, chronic constipation, normocytic anemia, restless leg syndrome, chronic back and neck pain. Vitamin D deficiency. Environmental and seasonal allergies Surgical History Hysterectomy, abdominal hernia repair and 4 C-sections Social History * Smoker: Denies Alcohol: Denies Drugs: denies A-FIB/CHADSVASC A-FIB History Current/History of A-Fib/PAF?: No Review of Systems Constitutional: Denies: Chills, Fever, Malaise, Night Sweats, Weakness, Fatigue, Weight Loss, Lethargy, Other Eyes: Denies: Pain, Vision change, Conjunctivae inflammation, Eyelid inflammation, Redness, Other Pulmonary: Denies: Dyspnea, Cough, Pleuritic Chest Pain, Other Symptoms Cardiovascular: Denies: Chest Pain, Palpitations, Orthopnea, Paroxysmal Noc. Dyspnea, Edema, Lt Headedness, Other Symptoms Gastrointestinal: Denies: Nausea, Vomiting, Abdominal Pain, Diarrhea, Constipation, Melena, Hematochezia, Other Symptoms Hematologic: Denies: Bruising, Bleeding Excessively, Petecchia, Purpura, Enlarged Lymph Nodes, Other Hematologic Endocrine: Denies: Polydipsia, Polyphagia, Polyuria, Heat Intolerance, Cold Intolerance, Other Endocrine Sx Musculoskeletal: Reports: Other Symptoms (pain at the left elbow, left hip, left knee. The right arm and low back) Neurological: Denies: Weakness, Numbness, Incoordination, Change in speech, Con fusion, Seizures, Other Symptoms Psych: Denies: Mood Normal, Anxiety, Depression, Memory Issues, Thoughts of Self Harm, Anger, Thoughts of Harming Other, Other Psych Physical Examination General Exam: Positive: Alert, Cooperative Eye Exam: Positive: PERRLA, Conjunctiva & lids normal ENT Exam: Positive: Atraumatic, Mucous membr. moist/pink Neck Exam: Positive: Supple Chest Exam: Positive: Clear to auscultation, Normal air movement Heart Exam: Positive: Rate Normal, Normal S1, Normal S2 Abdomen Exam: Positive: Normal bowel sounds, Soft Extremity Exam: Positive: Normal pulses Skin Exam: Positive: Nl turgor and temperature Neuro Exam: Positive: Strength at 5/5 X4 ext, Sensation Intact, Cranial Nerves 3-12 NL Psych Exam: Positive: Mood NL Vital Signs Vital Signs Date Time Temp Pulse Resp B/P (MAP) Pulse Ox O2 Delivery O2 Flow Rate FiO2 01/21/20 22:49 98.4 74 16 152/88 (109) 97 Room Air Laboratory Data Labs 24H Laboratory Tests 2 01/21/20 23:35: Nucleated Red Blood Cells % (auto) 0.0, POC Glucose (Misc Panel) 96, POC Sodium (Misc Panel) 143, POC Potassium (Misc Panel) 3.6, POC Chloride (Misc Panel) 109, POC Total CO2 (Misc Panel) 21.0L, POC Blood Urea Nitrogen (Misc Panel 8, POC Ionized Calcium (Misc Panel) 4.8, POC Creatinine (Misc Panel) 0.8, POC Hematocrit (Misc Panel) 36.0L CBC/BMP Laboratory Tests 01/21/20 23:35 Problems (1) Fall Status: Acute Problem Text: 74 years old white female with multiple medical problems was admitted with frequent falls. She sustained 3 falls last 1 week. This time, hitting her head and she complaining of a left elbow, hip and knee pain and right arm and lower back pain. Patient's family is unable to take care of at home and they're requesting social media marketer intervention for senior care home facility placement Patient reported historian. History was obtained from him when necessary. Reviewing her old records Patient had a CT of the brain done which shows age-related changes, no acute infarct or hemorrhage, CT cervical spine normal , CBC, CMP essentially within normal limits [facility] and [facility] Saline lock Fall precautions Physical therapy evaluation in a.m. Social work evaluation for possible placement Continue home meds Diet 2 g sodium Activity as tolerated VT prophylaxis with heparin (2) HTN (hypertension) Status: Chronic Problem Text: Continue home meds (3) Dementia Status: Chronic Problem Text: Continue home meds Plan / VTE VTE Prophylaxis Ordered?: Yes ALYCIA MOORE MD Jan 22, 2020 01:20
[2020-01-22 02:00] VITALS: BP 151/96
[2020-01-22] MEDS ORDERED: TRAM50TA2 PO (02:10)
[2020-01-22] MEDS ORDERED: traMADol 50 MG TAB PO PRN (02:30)
[2020-01-22] MEDS ORDERED: ALBUTEROL 90 MCG/ACT 8GM HFA INHALER INH PRN (02:30)
[2020-01-22] MEDS: NORTRIPTYLINE 25 MG CAP PO SCH ×2 (03:10→21:11)
[2020-01-22] MEDS: ATORVASTATIN 20 MG TAB PO SCH ×2 (03:10→21:11)
[2020-01-22] MEDS: ACETAMINOPHEN TAB 650MG DOSE (2X325MG) PO PRN (03:10)
[2020-01-22] MEDS: oxyBUTYnin 5 MG TAB PO SCH ×2 (03:10→21:10)
[2020-01-22] MEDS: DONEPEZIL 5 MG TAB PO SCH ×2 (03:10→21:10)
[2020-01-22 06:00] VITALS: BP 125/86
[2020-01-22] MEDS: SENOKOT S TAB PO SCH (08:03)
[2020-01-22] MEDS: OMEPRAZOLE 20 MG CAP PO SCH (08:03)
[2020-01-22] MEDS: FLUTICASONE PROP 0.05% NASAL SPRAY 16 GM (FLONASE) NARES SCH (08:03)
[2020-01-22] MEDS: HEPARIN SOD (PORCINE) 5000UNITS/ML VIAL (J1644 PER 1000UNITS) SC SCH ×2 (08:03→21:11)
[2020-01-22] MEDS: DULoxetine 30 MG CAP (CYMBALTA) PO SCH (08:03)
[2020-01-22] MEDS: traMADol 50 MG TAB PO SCH ×2 (08:04→16:07)
[2020-01-22] MEDS: CARVedilol 6.25 MG TAB PO SCH ×2 (08:06→21:10)
[2020-01-22] MEDS: QUEtiapine FUMARATE 50 MG TAB PO SCH ×2 (08:06→21:11)
[2020-01-22] MEDS: QUEtiapine FUMARATE 100 MG TAB PO SCH ×2 (08:06→21:11)
[2020-01-22] MEDS: QUEtiapine FUMARATE 25 MG TAB PO SCH ×2 (08:06→21:11)
--- NOTE | 2020-01-22 08:15 | REP ---
REASON: Trauma. PRIORS: None. There is asymmetric joint space narrowing and osteophytosis involving the acromioclavicular joint. The glenohumeral relationship is within normal limits. There is no acute fracture, dislocation or subluxation. IMPRESSION: Chronic changes as described above. Electronically Signed by Melecio Lima DO 01/22/2020 09:44 A
--- NOTE | 2020-01-22 08:16 | REP ---
REASON: Trauma. A single AP view of the pelvis was performed. The hip joint spaces are symmetric and relatively well maintained. There is no acute fracture or destructive osseous lesion. Transpedicular screws are seen at L5 and S1 bilaterally. Electronically Signed by Melecio Lima DO 01/22/2020 09:44 A
[2020-01-22 08:27] LABS: BASO % 0.5 % (0.0-1.0); EOS # 0.3 10^3/uL (0.0-0.5); EOS % 3.7 % (0.0-3.0); HEMATOCRIT 36.5 % (36.0-47.0); HEMOGLOBIN 11.8 g/dl (12.0-15.5); LYMPH # 3.8 10^3/uL (1.5-5.0); LYMPH % 50.7 % (24.0-44.0); MEAN CORPUSCULAR HEMOGLOBIN 29.2 pg (27.0-33.0); MEAN CORPUSCULAR HGB CONC 32.3 g/dl (32.0-36.5); MEAN CORPUSCULAR VOLUME 90.3 fl (80.0-96.0); MONO # 0.5 10^3/uL (0.0-0.8); MONO % 6.5 % (0.0-5.0); NEUTROPHILS # 2.9 10^3/uL (1.5-8.5); NEUTROPHILS % 38.5 % (36.0-66.0); PLATELET COUNT, AUTOMATED 243 10^3/uL (150-450); RED BLOOD COUNT 4.04 10^6/uL (4.00-5.40); WHITE BLOOD COUNT 7.6 10^3/uL (4.0-10.0)
[2020-01-22 08:45] LABS: BLOOD UREA NITROGEN 7 MG/DL (7-18); CALCIUM LEVEL 8.5 MG/DL (8.8-10.2); CARBON DIOXIDE LEVEL 24 MEQ/L (21-32); CHLORIDE LEVEL 113 MEQ/L (98-107); CREATININE FOR GFR 0.82 MG/DL (0.55-1.30); GLOMERULAR FILTRATION RATE > 60.0 (>39); GLUCOSE, FASTING 93 MG/DL (70-100); MAGNESIUM LEVEL 1.8 MG/DL (1.8-2.4); POTASSIUM SERUM 3.8 MEQ/L (3.5-5.1); SODIUM LEVEL 143 MEQ/L (136-145)
[2020-01-22] MEDS: NORCO, ANEXSIA 5/325MG TABLET (HYDROcodone/ACETAMINOPHEN) PO PRN ×2 (11:26→21:13)
--- NOTE | 2020-01-22 11:55 | IPNPDOC ---
Text Note Date of Service The patient was seen on 01/22/20. NOTE Subjective: Patient is 73-year-old female with a past medical history of HTN, Cardiomyopathy, DLP, Dementia with behavioral disturbance, Bipolar disorder, PTSD, Anemia, RLS, Chronic constipation, Chronic back pain, Vitamin D deficiency who is experiencing multiple falls while at home. Patient presented to the emergency room after she had a recent fall where she had fell off of 3 steps. Upon evaluation in emergency room, patient had multiple images completed that were negative for any acute pathology. Patient was admitted to hospitalist service for pain control and likely placement to detention. Patient was seen and examined at the bedside. Currently, patient reports that she does experiencing right shoulder pain. She denies any headache, nausea, vomiting, chest pain, shortness breath, palpitations, abdominal pain, constipation, diarrhea, or urinary discomfort. Objective: Vitals (See below) General: Lying in bed, reports right shoulder pain, Awake/Alert HEENT: NC, AT CVS: +S1S2 Lungs: Fair air entry b/l, no appreciable wheezing, rhonchi or rales Abdomen: Soft, ND, NT Extremities: - Edema, - Calf tenderness Assessment and plan: Multiple falls - Patient reports right shoulder pain - Patient is hemodynamically stable and afebrile - Lab work is benign without any electrolyte abnormalities, no evidence of infection - XR Shoulder 2: Chronic changes as described above. - L Hip XR 2: A single AP view of the pelvis was performed. The hip joint spaces are symmetric and relatively well maintained. There is no acute fracture or destructive osseous lesion. Transpedicular screws are seen at L5 and S1 bilaterally. - Head CT 01/21: No acute intracranial abnormality. - Cervical CT /2: 1. No fracture or malalignment. 2. Mild degenerative spondylosis. - c/w PT and OT - Will adjust pain medications for better relief - Discussed with case management; likely will need placement HTN / Cardiomyopathy - BP well controlled - c/w Carvedilol DLP - c/w atorvastatin Dementia with behavioral disturbance / Bipolar disorder / PTSD - c/w Donepezil, Duloxetine, Nortriptyline, Quetiapine, Anemia - Hg appers stable - no evidence of bleeding RLS - c/w Ropinirole Chronic constipation - c/w bowel regimen as ordered Chronic back pain - c/w pain medications as ordered Vitamin D deficiency - Will continue with outpatient sedimentation GERD - c/w Omeprazole DVT prophylaxis - c/w Heparin VS,Fishbone, I+O VS, Fishbone, I+O Laboratory Tests 01/21/20 23:35 01/22/20 08:05 Vital Signs Date Time Temp Pulse Resp B/P (MAP) Pulse Ox O2 Delivery O2 Flow Rate FiO2 01/22/20 11:26 18 01/22/20 08:06 89 130/85 01/22/20 06:00 98.6 98 Room Air I&O- Last 24 Hours up to 6 AM 01/22/20 06:00 Intake Total 0 ml Balance 0 ml DIOMEDES CHIN MD Jan 22, 2020 11:55
[2020-01-22 14:00] VITALS: BP 104/74
[2020-01-22] MEDS: rOPINIRole 1MG TAB PO SCH (18:07)
[2020-01-22] MEDS: LATANOPROST 0.005% OPHTH SOLN 2.5 ML OU SCH (21:11)
[2020-01-22 22:00] VITALS: BP 147/86
[2020-01-23 06:00] VITALS: BP 129/71
[2020-01-23 06:02] LABS: HEMATOCRIT 38.3 % (36.0-47.0); HEMOGLOBIN 12.2 g/dl (12.0-15.5); MEAN CORPUSCULAR HEMOGLOBIN 29.1 pg (27.0-33.0); MEAN CORPUSCULAR HGB CONC 31.9 g/dl (32.0-36.5); MEAN CORPUSCULAR VOLUME 91.4 fl (80.0-96.0); PLATELET COUNT, AUTOMATED 252 10^3/uL (150-450); RED BLOOD COUNT 4.19 10^6/uL (4.00-5.40); WHITE BLOOD COUNT 7.1 10^3/uL (4.0-10.0)
[2020-01-23 06:36] LABS: ALBUMIN 2.9 GM/DL (3.2-5.2); ALT/SGPT 20 U/L (12-78); BILIRUBIN,TOTAL 0.3 MG/DL (0.2-1.0); BLOOD UREA NITROGEN 13 MG/DL (7-18); CALCIUM LEVEL 8.4 MG/DL (8.8-10.2); CARBON DIOXIDE LEVEL 24 MEQ/L (21-32); CHLORIDE LEVEL 114 MEQ/L (98-107); CREATININE FOR GFR 0.82 MG/DL (0.55-1.30); GLOMERULAR FILTRATION RATE > 60.0 (>39); GLUCOSE, FASTING 100 MG/DL (70-100); MAGNESIUM LEVEL 1.8 MG/DL (1.8-2.4); POTASSIUM SERUM 4.3 MEQ/L (3.5-5.1); SODIUM LEVEL 144 MEQ/L (136-145); TOTAL PROTEIN 6.3 GM/DL (6.4-8.2)
[2020-01-23] MEDS ORDERED: PREVNAR 13 VACCINE SYRINGE (CPT CODE:90670) IM ONE (09:00)
[2020-01-23] MEDS: OMEPRAZOLE 20 MG CAP PO SCH (09:44)
[2020-01-23] MEDS: traMADol 50 MG TAB PO SCH ×2 (09:45→16:32)
[2020-01-23] MEDS: HEPARIN SOD (PORCINE) 5000UNITS/ML VIAL (J1644 PER 1000UNITS) SC SCH ×2 (09:46→20:18)
[2020-01-23] MEDS: QUEtiapine FUMARATE 100 MG TAB PO SCH ×2 (09:46→20:17)
[2020-01-23] MEDS: QUEtiapine FUMARATE 25 MG TAB PO SCH ×2 (09:46→20:17)
[2020-01-23] MEDS: DULoxetine 30 MG CAP (CYMBALTA) PO SCH (09:46)
[2020-01-23] MEDS: SENOKOT S TAB PO SCH (09:46)
[2020-01-23] MEDS: QUEtiapine FUMARATE 50 MG TAB PO SCH ×2 (09:46→20:18)
[2020-01-23] MEDS: CARVedilol 6.25 MG TAB PO SCH ×2 (09:47→20:17)
[2020-01-23] MEDS: FLUTICASONE PROP 0.05% NASAL SPRAY 16 GM (FLONASE) NARES SCH (09:48)
[2020-01-23] MEDS: NORCO, ANEXSIA 5/325MG TABLET (HYDROcodone/ACETAMINOPHEN) PO PRN ×2 (13:48→20:19)
[2020-01-23] MEDS: rOPINIRole 1MG TAB PO SCH (18:46)
[2020-01-23] MEDS: DONEPEZIL 5 MG TAB PO SCH (20:16)
[2020-01-23] MEDS: oxyBUTYnin 5 MG TAB PO SCH (20:17)
[2020-01-23] MEDS: NORTRIPTYLINE 25 MG CAP PO SCH (20:17)
[2020-01-23] MEDS: ATORVASTATIN 20 MG TAB PO SCH (20:17)
[2020-01-23] MEDS: LATANOPROST 0.005% OPHTH SOLN 2.5 ML OU SCH (20:19)
[2020-01-24] MEDS: NORCO, ANEXSIA 5/325MG TABLET (HYDROcodone/ACETAMINOPHEN) PO PRN ×3 (04:12→19:34)
[2020-01-24 06:00] VITALS: BP 121/80
[2020-01-24] MEDS: OMEPRAZOLE 20 MG CAP PO SCH (10:05)
[2020-01-24] MEDS: HEPARIN SOD (PORCINE) 5000UNITS/ML VIAL (J1644 PER 1000UNITS) SC SCH ×2 (10:05→20:53)
[2020-01-24] MEDS: QUEtiapine FUMARATE 50 MG TAB PO SCH ×2 (10:07→20:53)
[2020-01-24] MEDS: DULoxetine 30 MG CAP (CYMBALTA) PO SCH (10:07)
[2020-01-24] MEDS: CARVedilol 6.25 MG TAB PO SCH ×2 (10:07→20:54)
[2020-01-24] MEDS: QUEtiapine FUMARATE 25 MG TAB PO SCH ×2 (10:07→20:53)
[2020-01-24] MEDS: SENOKOT S TAB PO SCH (10:07)
[2020-01-24] MEDS: traMADol 50 MG TAB PO SCH ×2 (10:07→17:21)
[2020-01-24] MEDS: QUEtiapine FUMARATE 100 MG TAB PO SCH ×2 (10:08→20:53)
[2020-01-24] MEDS: FLUTICASONE PROP 0.05% NASAL SPRAY 16 GM (FLONASE) NARES SCH (10:10)
[2020-01-24] MEDS ORDERED: TUBERCULIN PPD 5 UNITS/0.1 ML ID ONE (11:00)
[2020-01-24] MEDS: rOPINIRole 1MG TAB PO SCH (17:21)
[2020-01-24] MEDS: NORTRIPTYLINE 25 MG CAP PO SCH (20:53)
[2020-01-24] MEDS: ATORVASTATIN 20 MG TAB PO SCH (20:53)
[2020-01-24] MEDS: DONEPEZIL 5 MG TAB PO SCH (20:54)
[2020-01-24] MEDS: oxyBUTYnin 5 MG TAB PO SCH (20:54)
[2020-01-24] MEDS: LATANOPROST 0.005% OPHTH SOLN 2.5 ML OU SCH (20:54)
[2020-01-25] MEDS: NORCO, ANEXSIA 5/325MG TABLET (HYDROcodone/ACETAMINOPHEN) PO PRN ×3 (03:43→17:56)
[2020-01-25 06:00] VITALS: BP 121/85
[2020-01-25] MEDS: FLUTICASONE PROP 0.05% NASAL SPRAY 16 GM (FLONASE) NARES SCH (08:38)
[2020-01-25] MEDS: SENOKOT S TAB PO SCH (08:39)
[2020-01-25] MEDS: DULoxetine 30 MG CAP (CYMBALTA) PO SCH (08:39)
[2020-01-25] MEDS: QUEtiapine FUMARATE 50 MG TAB PO SCH ×2 (08:40→20:58)
[2020-01-25] MEDS: OMEPRAZOLE 20 MG CAP PO SCH (08:40)
[2020-01-25] MEDS: QUEtiapine FUMARATE 25 MG TAB PO SCH ×2 (08:40→20:58)
[2020-01-25] MEDS: QUEtiapine FUMARATE 100 MG TAB PO SCH ×2 (08:40→20:58)
[2020-01-25] MEDS: traMADol 50 MG TAB PO SCH ×2 (08:41→15:28)
[2020-01-25] MEDS: CARVedilol 6.25 MG TAB PO SCH ×2 (08:41→21:00)
[2020-01-25] MEDS: HEPARIN SOD (PORCINE) 5000UNITS/ML VIAL (J1644 PER 1000UNITS) SC SCH ×2 (08:41→20:58)
[2020-01-25] MEDS: rOPINIRole 1MG TAB PO SCH (17:53)
[2020-01-25] MEDS: oxyBUTYnin 5 MG TAB PO SCH (20:57)
[2020-01-25] MEDS: DONEPEZIL 5 MG TAB PO SCH (20:57)
[2020-01-25] MEDS: ATORVASTATIN 20 MG TAB PO SCH (20:58)
[2020-01-25] MEDS: NORTRIPTYLINE 25 MG CAP PO SCH (20:58)
[2020-01-25] MEDS: LATANOPROST 0.005% OPHTH SOLN 2.5 ML OU SCH (20:58)
[2020-01-25] MEDS: ACETAMINOPHEN TAB 650MG DOSE (2X325MG) PO PRN (21:00)
[2020-01-26] MEDS: NORCO, ANEXSIA 5/325MG TABLET (HYDROcodone/ACETAMINOPHEN) PO PRN ×2 (02:06→10:27)
[2020-01-26 06:00] VITALS: BP 114/66
[2020-01-26] MEDS: ACETAMINOPHEN TAB 650MG DOSE (2X325MG) PO PRN (06:22)
[2020-01-26] MEDS: HEPARIN SOD (PORCINE) 5000UNITS/ML VIAL (J1644 PER 1000UNITS) SC SCH ×2 (08:35→20:31)
[2020-01-26] MEDS: DULoxetine 30 MG CAP (CYMBALTA) PO SCH (08:35)
[2020-01-26] MEDS: traMADol 50 MG TAB PO SCH ×2 (08:35→16:15)
[2020-01-26] MEDS: CARVedilol 6.25 MG TAB PO SCH ×2 (08:36→20:31)
[2020-01-26] MEDS: SENOKOT S TAB PO SCH ×2 (08:36→20:32)
[2020-01-26] MEDS: QUEtiapine FUMARATE 100 MG TAB PO SCH ×2 (08:36→20:30)
[2020-01-26] MEDS: OMEPRAZOLE 20 MG CAP PO SCH (08:36)
[2020-01-26] MEDS: QUEtiapine FUMARATE 50 MG TAB PO SCH ×2 (08:36→20:30)
[2020-01-26] MEDS: QUEtiapine FUMARATE 25 MG TAB PO SCH ×2 (08:36→20:30)
[2020-01-26] MEDS: FLUTICASONE PROP 0.05% NASAL SPRAY 16 GM (FLONASE) NARES SCH (08:37)
[2020-01-26] MEDS ORDERED: PPD DOCUMENTATION ENTRY MISC ID SCH (10:00)
[2020-01-26] MEDS ORDERED: PPD DOCUMENTATION ENTRY MISC XX ONE (11:00)
[2020-01-26] MEDS: MIRALAX *UNIT DOSE* 17GM PACKET PO PRN (13:09)
[2020-01-26] MEDS: oxyBUTYnin 5 MG TAB PO SCH ×2 (13:09→20:31)
[2020-01-26] MEDS: PERCOCET 5MG/325MG TAB PO PRN ×2 (13:10→20:33)
[2020-01-26] MEDS: DICLOFENAC EPOLAMINE 1.3 % PATCH TOP SCH (16:14)
[2020-01-26] MEDS: rOPINIRole 1MG TAB PO SCH (18:11)
[2020-01-26] MEDS: DONEPEZIL 5 MG TAB PO SCH (20:30)
[2020-01-26] MEDS: NORTRIPTYLINE 25 MG CAP PO SCH (20:31)
[2020-01-26] MEDS: ATORVASTATIN 20 MG TAB PO SCH (20:31)
[2020-01-26] MEDS: LATANOPROST 0.005% OPHTH SOLN 2.5 ML OU SCH (20:31)
[2020-01-27 06:00] VITALS: BP 125/81
[2020-01-27] MEDS: PERCOCET 5MG/325MG TAB PO PRN ×3 (06:49→20:29)
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
[2020-01-27] MEDS: HEPARIN SOD (PORCINE) 5000UNITS/ML VIAL (J1644 PER 1000UNITS) SC SCH ×2 (09:19→20:26)
[2020-01-27] MEDS: DICLOFENAC EPOLAMINE 1.3 % PATCH TOP SCH ×3 (09:19→20:27)
[2020-01-27] MEDS: QUEtiapine FUMARATE 25 MG TAB PO SCH ×2 (09:20→20:26)
[2020-01-27] MEDS: CARVedilol 6.25 MG TAB PO SCH ×2 (09:20→20:27)
[2020-01-27] MEDS: DULoxetine 30 MG CAP (CYMBALTA) PO SCH (09:20)
[2020-01-27] MEDS: oxyBUTYnin 5 MG TAB PO SCH ×2 (09:20→20:26)
[2020-01-27] MEDS: QUEtiapine FUMARATE 100 MG TAB PO SCH ×2 (09:20→20:26)
[2020-01-27] MEDS: SENOKOT S TAB PO SCH ×2 (09:21→20:26)
[2020-01-27] MEDS: QUEtiapine FUMARATE 50 MG TAB PO SCH ×2 (09:21→20:25)
[2020-01-27] MEDS: OMEPRAZOLE 20 MG CAP PO SCH (09:21)
[2020-01-27] MEDS: traMADol 50 MG TAB PO SCH ×2 (09:22→16:56)
[2020-01-27] MEDS: FLUTICASONE PROP 0.05% NASAL SPRAY 16 GM (FLONASE) NARES SCH (09:22)
[2020-01-27] MEDS: MIRALAX *UNIT DOSE* 17GM PACKET PO PRN (11:56)
[2020-01-27] MEDS: rOPINIRole 1MG TAB PO SCH (17:00)
[2020-01-27] MEDS: NORTRIPTYLINE 25 MG CAP PO SCH (20:26)
[2020-01-27] MEDS: DONEPEZIL 5 MG TAB PO SCH (20:26)
[2020-01-27] MEDS: ATORVASTATIN 20 MG TAB PO SCH (20:26)
[2020-01-27] MEDS: LATANOPROST 0.005% OPHTH SOLN 2.5 ML OU SCH (23:01)
[2020-01-27] MEDS: ACETAMINOPHEN TAB 650MG DOSE (2X325MG) PO PRN (23:03)
[2020-01-28] MEDS: PERCOCET 5MG/325MG TAB PO PRN ×3 (02:51→21:10)
[2020-01-28 06:00] VITALS: BP 99/68
[2020-01-28] MEDS: HEPARIN SOD (PORCINE) 5000UNITS/ML VIAL (J1644 PER 1000UNITS) SC SCH ×2 (08:51→21:07)
[2020-01-28] MEDS: traMADol 50 MG TAB PO SCH ×2 (08:52→16:13)
[2020-01-28] MEDS: OMEPRAZOLE 20 MG CAP PO SCH (08:52)
[2020-01-28] MEDS: QUEtiapine FUMARATE 100 MG TAB PO SCH ×2 (08:57→21:08)
[2020-01-28] MEDS: QUEtiapine FUMARATE 50 MG TAB PO SCH ×2 (08:57→21:08)
[2020-01-28] MEDS: oxyBUTYnin 5 MG TAB PO SCH ×2 (08:57→21:08)
[2020-01-28] MEDS: QUEtiapine FUMARATE 25 MG TAB PO SCH ×2 (08:57→21:07)
[2020-01-28] MEDS: DULoxetine 30 MG CAP (CYMBALTA) PO SCH (08:57)
[2020-01-28] MEDS: FLUTICASONE PROP 0.05% NASAL SPRAY 16 GM (FLONASE) NARES SCH (08:58)
[2020-01-28] MEDS: SENOKOT S TAB PO SCH ×2 (08:58→21:08)
[2020-01-28] MEDS: DICLOFENAC EPOLAMINE 1.3 % PATCH TOP SCH ×2 (08:59→21:09)
[2020-01-28] MEDS: CARVedilol 6.25 MG TAB PO SCH ×2 (09:12→21:08)
[2020-01-28] MEDS: rOPINIRole 1MG TAB PO SCH (18:08)
[2020-01-28] MEDS: ACETAMINOPHEN TAB 650MG DOSE (2X325MG) PO PRN (18:09)
[2020-01-28] MEDS: ATORVASTATIN 20 MG TAB PO SCH (21:08)
[2020-01-28] MEDS: NORTRIPTYLINE 25 MG CAP PO SCH (21:08)
[2020-01-28] MEDS: DONEPEZIL 5 MG TAB PO SCH (21:08)
[2020-01-28] MEDS: LATANOPROST 0.005% OPHTH SOLN 2.5 ML OU SCH (21:09)
[2020-01-29] MEDS: PERCOCET 5MG/325MG TAB PO PRN ×3 (03:05→21:51)
[2020-01-29 06:00] VITALS: BP 105/68
[2020-01-29] MEDS: ACETAMINOPHEN TAB 650MG DOSE (2X325MG) PO PRN (06:05)
[2020-01-29] MEDS: OMEPRAZOLE 20 MG CAP PO SCH (07:59)
[2020-01-29] MEDS: HEPARIN SOD (PORCINE) 5000UNITS/ML VIAL (J1644 PER 1000UNITS) SC SCH ×2 (07:59→20:13)
[2020-01-29] MEDS: QUEtiapine FUMARATE 25 MG TAB PO SCH ×2 (08:00→20:09)
[2020-01-29] MEDS: oxyBUTYnin 5 MG TAB PO SCH ×2 (08:01→20:09)
[2020-01-29] MEDS: QUEtiapine FUMARATE 100 MG TAB PO SCH ×2 (08:01→20:09)
[2020-01-29] MEDS: QUEtiapine FUMARATE 50 MG TAB PO SCH ×2 (08:01→20:08)
[2020-01-29] MEDS: CARVedilol 6.25 MG TAB PO SCH ×2 (08:01→20:11)
[2020-01-29] MEDS: DULoxetine 30 MG CAP (CYMBALTA) PO SCH (08:01)
[2020-01-29] MEDS: DICLOFENAC EPOLAMINE 1.3 % PATCH TOP SCH ×2 (08:01→20:13)
[2020-01-29] MEDS: SENOKOT S TAB PO SCH ×2 (08:01→20:09)
[2020-01-29] MEDS: traMADol 50 MG TAB PO SCH ×2 (08:01→15:15)
[2020-01-29] MEDS: FLUTICASONE PROP 0.05% NASAL SPRAY 16 GM (FLONASE) NARES SCH (08:02)
[2020-01-29 14:00] VITALS: BP 104/63
[2020-01-29] MEDS: rOPINIRole 1MG TAB PO SCH (17:00)
[2020-01-29] MEDS: NORTRIPTYLINE 25 MG CAP PO SCH (20:08)
[2020-01-29] MEDS: DONEPEZIL 5 MG TAB PO SCH (20:09)
[2020-01-29] MEDS: ATORVASTATIN 20 MG TAB PO SCH (20:09)
[2020-01-29] MEDS: LATANOPROST 0.005% OPHTH SOLN 2.5 ML OU SCH (20:12)
[2020-01-29 22:00] VITALS: BP 112/71
[2020-01-30] MEDS: PERCOCET 5MG/325MG TAB PO PRN ×3 (02:26→20:17)
[2020-01-30 06:00] VITALS: BP 111/71
[2020-01-30] MEDS: HEPARIN SOD (PORCINE) 5000UNITS/ML VIAL (J1644 PER 1000UNITS) SC SCH ×2 (08:03→20:18)
[2020-01-30] MEDS: DICLOFENAC EPOLAMINE 1.3 % PATCH TOP SCH ×2 (08:04→20:18)
[2020-01-30] MEDS: FLUTICASONE PROP 0.05% NASAL SPRAY 16 GM (FLONASE) NARES SCH (08:05)
[2020-01-30] MEDS: oxyBUTYnin 5 MG TAB PO SCH ×2 (08:05→20:18)
[2020-01-30] MEDS: OMEPRAZOLE 20 MG CAP PO SCH (08:05)
[2020-01-30] MEDS: QUEtiapine FUMARATE 25 MG TAB PO SCH ×2 (08:05→20:17)
[2020-01-30] MEDS: QUEtiapine FUMARATE 50 MG TAB PO SCH ×2 (08:05→20:18)
[2020-01-30] MEDS: SENOKOT S TAB PO SCH ×2 (08:06→20:18)
[2020-01-30] MEDS: QUEtiapine FUMARATE 100 MG TAB PO SCH ×2 (08:06→20:18)
[2020-01-30] MEDS: DULoxetine 30 MG CAP (CYMBALTA) PO SCH (08:06)
[2020-01-30] MEDS: traMADol 50 MG TAB PO SCH ×2 (08:06→15:01)
[2020-01-30] MEDS: CARVedilol 6.25 MG TAB PO SCH ×2 (08:07→20:21)
--- NOTE | 2020-01-30 12:23 | IPNPDOC ---
Subjective Date Seen The patient was seen on 01/30/20. Subjective Chief Complaint/HPI pt complaining of pain shooting down her right arm from her shoulder General: Denies: ROS Unobtainable, Chills, Night Sweats, Fatigue, Malaise, Normal Appetite, Other Symptoms Constitutional: Denies: Chills, Fever, Malaise, Night Sweats, Weakness, Fatigue, Weight Loss, Lethargy, Other Pulmonary: Denies: Dyspnea, Cough, Pleuritic Chest Pain, Other Symptoms Cardiovascular: Denies: Chest Pain, Palpitations, Orthopnea, Paroxysmal Noc. Dyspnea, Edema, Lt Headedness, Other Symptoms Gastrointestinal: Denies: Nausea, Vomiting, Abdominal Pain, Diarrhea, Constipation, Melena, Hematochezia, Other Symptoms Endocrine: Denies: Polydipsia, Polyphagia, Polyuria, Heat Intolerance, Cold Intolerance, Other Endocrine Sx Musculoskeletal: Reports: Other Symptoms (right arm pain) Neurological: Denies: Weakness, Numbness, Incoordination, Change in speech, Confusion, Seizures, Other Symptoms Objective Physical Examination General Exam: Positive: Alert, Cooperative Eye Exam: Positive: PERRLA, Conjunctiva & lids normal ENT Exam: Positive: Atraumatic, Mucous membr. moist/pink Neck Exam: Positive: Supple Chest Exam: Positive: Clear to auscultation, Normal air movement Heart Exam: Positive: Rate Normal, Normal S1, Normal S2 Abdomen Exam: Positive: Normal bowel sounds, Soft Extremity Exam: Positive: Normal pulses Skin Exam: Positive: Nl turgor and temperature Neuro Exam: Positive: Strength at 5/5 X4 ext, Sensation Intact, Cranial Nerves 3-12 NL Psych Exam: Positive: Mood NL Assessment /Plan Problems (1) Pain, arm, right Status: Acute Problem Text: According to patient, she develops a shooting pain and right arm from shoulder to her and on and off Most likely neurogenic in nature Will try Neurontin for a few days see whether this helps with her symptoms (2) HTN (hypertension) Status: Chronic Problem Text: Under well control At the present meds (3) Dementia Status: Chronic Problem Text: Stable Awaiting placement in the residential facility Continue present meds Plan/VTE VTE Prophylaxis Ordered?: Yes VS, I&O, 24H, Fishbone Vital Signs/I&O Vital Signs Date Time Temp Pulse Resp B/P (MAP) Pulse Ox O2 Delivery O2 Flow Rate FiO2 01/30/20 12:01 20 01/30/20 08:07 81 110/71 01/30/20 06:00 97.8 96 Room Air I&O- Last 24 Hours up to 6 AM 01/30/20 06:00 Intake Total 1360 ml Output Total 800 ml Balance 560 ml Laboratory Data Microbiology Microbiology 01/26/20 Urine Culture - Final, Complete 01/24/20 Urine Culture - Final, Complete 01/23/20 Coronavirus COVID-19 PCR ([facility]) - Final, Complete ALYCIA MOORE MD Jan 30, 2020 12:23
[2020-01-30 14:00] VITALS: BP 124/72
[2020-01-30] MEDS: rOPINIRole 1MG TAB PO SCH (17:24)
[2020-01-30] MEDS: ATORVASTATIN 20 MG TAB PO SCH (20:17)
[2020-01-30] MEDS: DONEPEZIL 5 MG TAB PO SCH (20:17)
[2020-01-30] MEDS: NORTRIPTYLINE 25 MG CAP PO SCH (20:17)
[2020-01-30] MEDS: GABAPENTIN 100 MG CAP PO SCH (20:17)
[2020-01-30] MEDS: LATANOPROST 0.005% OPHTH SOLN 2.5 ML OU SCH (20:18)
[2020-01-30 22:00] VITALS: BP 133/77
[2020-01-31] MEDS: PERCOCET 5MG/325MG TAB PO PRN ×4 (04:13→22:55)
[2020-01-31 06:00] VITALS: BP 108/74
[2020-01-31] MEDS: DICLOFENAC EPOLAMINE 1.3 % PATCH TOP SCH ×2 (08:37→20:32)
[2020-01-31] MEDS: QUEtiapine FUMARATE 50 MG TAB PO SCH ×2 (08:37→20:34)
[2020-01-31] MEDS: QUEtiapine FUMARATE 100 MG TAB PO SCH ×2 (08:37→20:34)
[2020-01-31] MEDS: SENOKOT S TAB PO SCH ×2 (08:37→20:33)
[2020-01-31] MEDS: QUEtiapine FUMARATE 25 MG TAB PO SCH ×2 (08:37→20:34)
[2020-01-31] MEDS: oxyBUTYnin 5 MG TAB PO SCH ×2 (08:37→20:33)
[2020-01-31] MEDS: DULoxetine 30 MG CAP (CYMBALTA) PO SCH (08:37)
[2020-01-31] MEDS: HEPARIN SOD (PORCINE) 5000UNITS/ML VIAL (J1644 PER 1000UNITS) SC SCH ×2 (08:37→20:34)
[2020-01-31] MEDS: OMEPRAZOLE 20 MG CAP PO SCH (08:37)
[2020-01-31] MEDS: FLUTICASONE PROP 0.05% NASAL SPRAY 16 GM (FLONASE) NARES SCH (08:38)
[2020-01-31] MEDS: CARVedilol 6.25 MG TAB PO SCH ×2 (08:38→20:35)
[2020-01-31] MEDS: traMADol 50 MG TAB PO SCH ×2 (08:39→15:06)
[2020-01-31] MEDS: rOPINIRole 1MG TAB PO SCH (17:05)
[2020-01-31] MEDS: ATORVASTATIN 20 MG TAB PO SCH (20:32)
[2020-01-31] MEDS: NORTRIPTYLINE 25 MG CAP PO SCH (20:33)
[2020-01-31] MEDS: GABAPENTIN 100 MG CAP PO SCH (20:33)
[2020-01-31] MEDS: DONEPEZIL 5 MG TAB PO SCH (20:33)
[2020-01-31] MEDS: LATANOPROST 0.005% OPHTH SOLN 2.5 ML OU SCH (20:34)
[2020-01-31 22:00] VITALS: BP 113/74
[2020-02-01] MEDS: PERCOCET 5MG/325MG TAB PO PRN ×3 (04:38→21:00)
[2020-02-01 06:00] VITALS: BP 109/71
[2020-02-01] MEDS: HEPARIN SOD (PORCINE) 5000UNITS/ML VIAL (J1644 PER 1000UNITS) SC SCH ×2 (09:19→21:02)
[2020-02-01] MEDS: DULoxetine 30 MG CAP (CYMBALTA) PO SCH (09:19)
[2020-02-01] MEDS: OMEPRAZOLE 20 MG CAP PO SCH (09:19)
[2020-02-01] MEDS: DICLOFENAC EPOLAMINE 1.3 % PATCH TOP SCH ×2 (09:19→21:02)
[2020-02-01] MEDS: SENOKOT S TAB PO SCH ×2 (09:20→20:59)
[2020-02-01] MEDS: oxyBUTYnin 5 MG TAB PO SCH ×2 (09:20→21:01)
[2020-02-01] MEDS: QUEtiapine FUMARATE 25 MG TAB PO SCH ×2 (09:20→21:01)
[2020-02-01] MEDS: QUEtiapine FUMARATE 100 MG TAB PO SCH ×2 (09:20→21:01)
[2020-02-01] MEDS: QUEtiapine FUMARATE 50 MG TAB PO SCH ×2 (09:20→21:01)
[2020-02-01] MEDS: traMADol 50 MG TAB PO SCH ×2 (09:21→18:02)
[2020-02-01] MEDS: FLUTICASONE PROP 0.05% NASAL SPRAY 16 GM (FLONASE) NARES SCH (09:23)
[2020-02-01] MEDS: CARVedilol 6.25 MG TAB PO SCH ×2 (09:23→21:02)
[2020-02-01] MEDS: rOPINIRole 1MG TAB PO SCH (18:01)
[2020-02-01] MEDS: ATORVASTATIN 20 MG TAB PO SCH (20:59)
[2020-02-01] MEDS: GABAPENTIN 100 MG CAP PO SCH (21:00)
[2020-02-01] MEDS: NORTRIPTYLINE 25 MG CAP PO SCH (21:00)
[2020-02-01] MEDS: DONEPEZIL 5 MG TAB PO SCH (21:01)
[2020-02-01] MEDS: LATANOPROST 0.005% OPHTH SOLN 2.5 ML OU SCH (21:02)
[2020-02-02] MEDS: PERCOCET 5MG/325MG TAB PO PRN ×4 (02:55→22:12)
[2020-02-02 06:00] VITALS: BP 104/65
[2020-02-02] MEDS: QUEtiapine FUMARATE 50 MG TAB PO SCH ×2 (08:29→21:05)
[2020-02-02] MEDS: oxyBUTYnin 5 MG TAB PO SCH ×2 (08:29→21:05)
[2020-02-02] MEDS: QUEtiapine FUMARATE 25 MG TAB PO SCH ×2 (08:29→21:05)
[2020-02-02] MEDS: DULoxetine 30 MG CAP (CYMBALTA) PO SCH (08:30)
[2020-02-02] MEDS: OMEPRAZOLE 20 MG CAP PO SCH (08:31)
[2020-02-02] MEDS: SENOKOT S TAB PO SCH ×2 (08:31→21:06)
[2020-02-02] MEDS: traMADol 50 MG TAB PO SCH ×2 (08:32→15:35)
[2020-02-02] MEDS: CARVedilol 6.25 MG TAB PO SCH ×2 (08:32→21:06)
[2020-02-02] MEDS: HEPARIN SOD (PORCINE) 5000UNITS/ML VIAL (J1644 PER 1000UNITS) SC SCH ×2 (08:33→21:06)
[2020-02-02] MEDS: FLUTICASONE PROP 0.05% NASAL SPRAY 16 GM (FLONASE) NARES SCH (08:33)
[2020-02-02] MEDS: DICLOFENAC EPOLAMINE 1.3 % PATCH TOP SCH ×2 (08:39→21:05)
[2020-02-02] MEDS: QUEtiapine FUMARATE 100 MG TAB PO SCH ×2 (08:39→21:05)
[2020-02-02] MEDS: rOPINIRole 1MG TAB PO SCH (18:03)
[2020-02-02] MEDS: DONEPEZIL 5 MG TAB PO SCH (21:05)
[2020-02-02] MEDS: ATORVASTATIN 20 MG TAB PO SCH (21:06)
[2020-02-02] MEDS: NORTRIPTYLINE 25 MG CAP PO SCH (21:06)
[2020-02-02] MEDS: LATANOPROST 0.005% OPHTH SOLN 2.5 ML OU SCH (21:06)
[2020-02-02] MEDS: GABAPENTIN 100 MG CAP PO SCH (21:06)
[2020-02-03] MEDS: ACETAMINOPHEN TAB 650MG DOSE (2X325MG) PO PRN (00:23)
[2020-02-03] MEDS: PERCOCET 5MG/325MG TAB PO PRN ×4 (02:15→19:49)
[2020-02-03 06:00] VITALS: BP 121/74
[2020-02-03] MEDS: DICLOFENAC EPOLAMINE 1.3 % PATCH TOP SCH ×2 (09:21→20:24)
[2020-02-03] MEDS: SENOKOT S TAB PO SCH ×2 (09:22→20:21)
[2020-02-03] MEDS: DULoxetine 30 MG CAP (CYMBALTA) PO SCH (09:22)
[2020-02-03] MEDS: FLUTICASONE PROP 0.05% NASAL SPRAY 16 GM (FLONASE) NARES SCH (09:22)
[2020-02-03] MEDS: HEPARIN SOD (PORCINE) 5000UNITS/ML VIAL (J1644 PER 1000UNITS) SC SCH ×2 (09:22→20:23)
[2020-02-03] MEDS: OMEPRAZOLE 20 MG CAP PO SCH (09:23)
[2020-02-03] MEDS: QUEtiapine FUMARATE 50 MG TAB PO SCH ×2 (09:23→20:21)
[2020-02-03] MEDS: QUEtiapine FUMARATE 25 MG TAB PO SCH ×2 (09:23→20:23)
[2020-02-03] MEDS: CARVedilol 6.25 MG TAB PO SCH ×2 (09:24→20:23)
[2020-02-03] MEDS: traMADol 50 MG TAB PO SCH ×2 (09:24→15:59)
[2020-02-03] MEDS: QUEtiapine FUMARATE 100 MG TAB PO SCH ×2 (09:24→20:23)
[2020-02-03] MEDS: oxyBUTYnin 5 MG TAB PO SCH ×2 (09:24→20:23)
[2020-02-03] MEDS: rOPINIRole 1MG TAB PO SCH (18:06)
[2020-02-03] MEDS: NORTRIPTYLINE 25 MG CAP PO SCH (20:22)
[2020-02-03] MEDS: DONEPEZIL 5 MG TAB PO SCH (20:23)
[2020-02-03] MEDS: GABAPENTIN 100 MG CAP PO SCH (20:23)
[2020-02-03] MEDS: ATORVASTATIN 20 MG TAB PO SCH (20:23)
[2020-02-03] MEDS: LATANOPROST 0.005% OPHTH SOLN 2.5 ML OU SCH (20:24)
[2020-02-04] MEDS: PERCOCET 5MG/325MG TAB PO PRN ×5 (01:12→20:11)
[2020-02-04 06:00] VITALS: BP 105/68
[2020-02-04] MEDS: DULoxetine 30 MG CAP (CYMBALTA) PO SCH (08:58)
[2020-02-04] MEDS: QUEtiapine FUMARATE 50 MG TAB PO SCH ×2 (08:58→20:15)
[2020-02-04] MEDS: DICLOFENAC EPOLAMINE 1.3 % PATCH TOP SCH ×2 (08:58→20:12)
[2020-02-04] MEDS: traMADol 50 MG TAB PO SCH ×2 (08:59→17:11)
[2020-02-04] MEDS: OMEPRAZOLE 20 MG CAP PO SCH (08:59)
[2020-02-04] MEDS: oxyBUTYnin 5 MG TAB PO SCH ×2 (09:00→20:15)
[2020-02-04] MEDS: SENOKOT S TAB PO SCH ×2 (09:00→20:10)
[2020-02-04] MEDS: HEPARIN SOD (PORCINE) 5000UNITS/ML VIAL (J1644 PER 1000UNITS) SC SCH ×2 (09:01→20:10)
[2020-02-04] MEDS: QUEtiapine FUMARATE 100 MG TAB PO SCH ×2 (09:01→20:15)
[2020-02-04] MEDS: FLUTICASONE PROP 0.05% NASAL SPRAY 16 GM (FLONASE) NARES SCH (09:01)
[2020-02-04] MEDS: QUEtiapine FUMARATE 25 MG TAB PO SCH ×2 (09:01→20:15)
[2020-02-04] MEDS: CARVedilol 6.25 MG TAB PO SCH ×2 (09:01→20:18)
[2020-02-04] MEDS: rOPINIRole 1MG TAB PO SCH (17:11)
[2020-02-04] MEDS: GABAPENTIN 100 MG CAP PO SCH (20:10)
[2020-02-04] MEDS: NORTRIPTYLINE 25 MG CAP PO SCH (20:10)
[2020-02-04] MEDS: ATORVASTATIN 20 MG TAB PO SCH (20:10)
[2020-02-04] MEDS: DONEPEZIL 5 MG TAB PO SCH (20:15)
[2020-02-04] MEDS: LATANOPROST 0.005% OPHTH SOLN 2.5 ML OU SCH (20:23)
[2020-02-05] MEDS: PERCOCET 5MG/325MG TAB PO PRN ×5 (01:30→22:11)
[2020-02-05 06:00] VITALS: BP 110/68
[2020-02-05] MEDS: DULoxetine 30 MG CAP (CYMBALTA) PO SCH (08:47)
[2020-02-05] MEDS: HEPARIN SOD (PORCINE) 5000UNITS/ML VIAL (J1644 PER 1000UNITS) SC SCH ×2 (08:47→20:11)
[2020-02-05] MEDS: SENOKOT S TAB PO SCH ×2 (08:47→20:06)
[2020-02-05] MEDS: QUEtiapine FUMARATE 50 MG TAB PO SCH ×2 (08:48→20:07)
[2020-02-05] MEDS: OMEPRAZOLE 20 MG CAP PO SCH (08:48)
[2020-02-05] MEDS: traMADol 50 MG TAB PO SCH ×2 (08:48→16:46)
[2020-02-05] MEDS: CARVedilol 6.25 MG TAB PO SCH ×2 (08:49→20:10)
[2020-02-05] MEDS: QUEtiapine FUMARATE 25 MG TAB PO SCH ×2 (08:49→20:07)
[2020-02-05] MEDS: QUEtiapine FUMARATE 100 MG TAB PO SCH ×2 (08:49→20:08)
[2020-02-05] MEDS: FLUTICASONE PROP 0.05% NASAL SPRAY 16 GM (FLONASE) NARES SCH (08:49)
[2020-02-05] MEDS: oxyBUTYnin 5 MG TAB PO SCH ×2 (08:49→20:08)
[2020-02-05] MEDS: DICLOFENAC EPOLAMINE 1.3 % PATCH TOP SCH ×2 (08:50→20:07)
[2020-02-05] MEDS: rOPINIRole 1MG TAB PO SCH (16:45)
[2020-02-05] MEDS: NORTRIPTYLINE 25 MG CAP PO SCH (20:07)
[2020-02-05] MEDS: ATORVASTATIN 20 MG TAB PO SCH (20:08)
[2020-02-05] MEDS: DONEPEZIL 5 MG TAB PO SCH (20:08)
[2020-02-05] MEDS: GABAPENTIN 100 MG CAP PO SCH (20:08)
[2020-02-05] MEDS: LATANOPROST 0.005% OPHTH SOLN 2.5 ML OU SCH (20:11)
[2020-02-06] MEDS: PERCOCET 5MG/325MG TAB PO PRN ×4 (03:03→20:48)
[2020-02-06 06:00] VITALS: BP 112/70
[2020-02-06] MEDS: HEPARIN SOD (PORCINE) 5000UNITS/ML VIAL (J1644 PER 1000UNITS) SC SCH ×2 (08:58→20:44)
[2020-02-06] MEDS: DICLOFENAC EPOLAMINE 1.3 % PATCH TOP SCH ×2 (08:58→20:43)
[2020-02-06] MEDS: OMEPRAZOLE 20 MG CAP PO SCH (08:58)
[2020-02-06] MEDS: oxyBUTYnin 5 MG TAB PO SCH ×2 (08:58→20:46)
[2020-02-06] MEDS: traMADol 50 MG TAB PO SCH ×2 (08:59→16:00)
[2020-02-06] MEDS: QUEtiapine FUMARATE 100 MG TAB PO SCH ×2 (08:59→20:47)
[2020-02-06] MEDS: QUEtiapine FUMARATE 50 MG TAB PO SCH ×2 (08:59→20:46)
[2020-02-06] MEDS: SENOKOT S TAB PO SCH ×2 (08:59→20:47)
[2020-02-06] MEDS: DULoxetine 30 MG CAP (CYMBALTA) PO SCH (08:59)
[2020-02-06] MEDS: QUEtiapine FUMARATE 25 MG TAB PO SCH ×2 (08:59→20:46)
[2020-02-06] MEDS: FLUTICASONE PROP 0.05% NASAL SPRAY 16 GM (FLONASE) NARES SCH (09:02)
[2020-02-06] MEDS: CARVedilol 6.25 MG TAB PO SCH ×2 (09:02→20:52)
[2020-02-06] MEDS: rOPINIRole 1MG TAB PO SCH (18:15)
[2020-02-06] MEDS: NORTRIPTYLINE 25 MG CAP PO SCH (20:46)
[2020-02-06] MEDS: ATORVASTATIN 20 MG TAB PO SCH (20:46)
[2020-02-06] MEDS: GABAPENTIN 100 MG CAP PO SCH (20:47)
[2020-02-06] MEDS: DONEPEZIL 5 MG TAB PO SCH (20:47)
[2020-02-06] MEDS: LATANOPROST 0.005% OPHTH SOLN 2.5 ML OU SCH (20:52)
[2020-02-07] MEDS: PERCOCET 5MG/325MG TAB PO PRN ×5 (00:09→21:37)
[2020-02-07 06:00] VITALS: BP 115/73
[2020-02-07] MEDS: HEPARIN SOD (PORCINE) 5000UNITS/ML VIAL (J1644 PER 1000UNITS) SC SCH ×2 (08:48→21:03)
[2020-02-07] MEDS: OMEPRAZOLE 20 MG CAP PO SCH (08:49)
[2020-02-07] MEDS: DULoxetine 30 MG CAP (CYMBALTA) PO SCH (08:49)
[2020-02-07] MEDS: CARVedilol 6.25 MG TAB PO SCH ×2 (08:49→21:02)
[2020-02-07] MEDS: oxyBUTYnin 5 MG TAB PO SCH ×2 (08:49→21:01)
[2020-02-07] MEDS: traMADol 50 MG TAB PO SCH ×2 (08:50→15:32)
[2020-02-07] MEDS: SENOKOT S TAB PO SCH ×2 (08:50→21:00)
[2020-02-07] MEDS: QUEtiapine FUMARATE 50 MG TAB PO SCH ×2 (08:50→21:00)
[2020-02-07] MEDS: QUEtiapine FUMARATE 100 MG TAB PO SCH ×2 (08:50→21:00)
[2020-02-07] MEDS: QUEtiapine FUMARATE 25 MG TAB PO SCH ×2 (08:50→21:00)
[2020-02-07] MEDS: DICLOFENAC EPOLAMINE 1.3 % PATCH TOP SCH ×2 (08:51→21:00)
[2020-02-07] MEDS: FLUTICASONE PROP 0.05% NASAL SPRAY 16 GM (FLONASE) NARES SCH (08:51)
[2020-02-07] MEDS: rOPINIRole 1MG TAB PO SCH (17:22)
[2020-02-07] MEDS: GABAPENTIN 100 MG CAP PO SCH (21:00)
[2020-02-07] MEDS: ATORVASTATIN 20 MG TAB PO SCH (21:00)
[2020-02-07] MEDS: NORTRIPTYLINE 25 MG CAP PO SCH (21:00)
[2020-02-07] MEDS: DONEPEZIL 5 MG TAB PO SCH (21:01)
[2020-02-07] MEDS: LATANOPROST 0.005% OPHTH SOLN 2.5 ML OU SCH (21:03)
[2020-02-08] MEDS: PERCOCET 5MG/325MG TAB PO PRN ×5 (02:59→21:34)
[2020-02-08 06:00] VITALS: BP 131/74
[2020-02-08] MEDS: QUEtiapine FUMARATE 25 MG TAB PO SCH ×2 (08:10→20:18)
[2020-02-08] MEDS: QUEtiapine FUMARATE 50 MG TAB PO SCH ×2 (08:10→20:18)
[2020-02-08] MEDS: QUEtiapine FUMARATE 100 MG TAB PO SCH ×2 (08:10→20:18)
[2020-02-08] MEDS: OMEPRAZOLE 20 MG CAP PO SCH (08:10)
[2020-02-08] MEDS: oxyBUTYnin 5 MG TAB PO SCH ×2 (08:10→20:18)
[2020-02-08] MEDS: HEPARIN SOD (PORCINE) 5000UNITS/ML VIAL (J1644 PER 1000UNITS) SC SCH ×2 (08:10→20:19)
[2020-02-08] MEDS: traMADol 50 MG TAB PO SCH (08:11)
[2020-02-08] MEDS: DULoxetine 30 MG CAP (CYMBALTA) PO SCH (08:11)
[2020-02-08] MEDS: SENOKOT S TAB PO SCH ×2 (08:11→20:17)
[2020-02-08] MEDS: CARVedilol 6.25 MG TAB PO SCH ×2 (08:11→20:21)
[2020-02-08] MEDS: DICLOFENAC EPOLAMINE 1.3 % PATCH TOP SCH ×2 (08:12→20:17)
[2020-02-08] MEDS: FLUTICASONE PROP 0.05% NASAL SPRAY 16 GM (FLONASE) NARES SCH (08:12)
--- NOTE | 2020-02-08 10:10 | IPNPDOC ---
Text Note Date of Service The patient was seen on 02/08/20. NOTE Subjective: Patient was seen and examined at the bedside. Currently, patient reports right shoulder pain but much better controlled.. She denies any headache, nausea, vomiting, chest pain, shortness breath, palpitations, abdominal pain. She does not like the tramadol wants to try only with gabapentin. Objective: Vitals (See below) General: Lying in bed, reports right shoulder pain, Awake/Alert HEENT: NC, AT CVS: +S1S2, no rub, murmur or gallop Lungs: Fair air entry b/l, no appreciable wheezing, rhonchi or rales Abdomen: Soft, ND, NT Extremities: - Edema, - Calf tenderness MSK: right shoulder tender to palpation limited active and passive range of motion Labs and Radiology reviewed. Assessment and plan: Patient is 73-year-old female with a past medical history of HTN, Cardiomyopathy, DLP, Dementia with behavioral disturbance, Bipolar disorder, PTSD, Anemia, RLS, Chronic constipation, Chronic back pain, Vitamin D deficiency who is experiencing multiple falls while at home. Patient presented to the emergency room after she had a recent fall where she had fell off of 3 steps. Upon evaluation in emergency room, patient had multiple images completed that were negative for any acute pathology. Patient was admitted to hospitalist service for pain control and placement in a half-way. Mild Dementia with behavioral disturbance / Bipolar disorder / PTSD c/w Donepezil, Duloxetine, Nortriptyline, Quetiapine, Awaiting terminal make up operator placement due to not feeling safe at home. independent in ADLS, awake alert, oriented. Multiple falls Right shoulder pain XR Shoulder /: Chronic changes as described above. L Hip XR /2: A single AP view of the pelvis was performed. The hip joint spaces are symmetric and relatively well maintained. There is no acute fracture or destructive osseous lesion. Transpedicular screws are seen at L5 and S1 bilaterally. Head CT 2: No acute intracranial abnormality. Cervical CT /2: 1. No fracture or malalignment. 2. Mild degenerative spondylosis. c/w PT and OT percocet prn, diclofenac patch, gabapentin HTN / Cardiomyopathy BP well controlled c/w Carvedilol DLP c/w atorvastatin RLS c/w Ropinirole Chronic constipation c/w bowel regimen as ordered Chronic back pain/ back surgery c/w pain medications as ordered percocet, gabapentin. Vitamin D deficiency Will continue with outpatient med GERD c/w Omeprazole Glaucoma c/w Eye drops Urge incontinence/ urinary urgency oxybutinin dose increased. DVT prophylaxis c/w Heparin VS,Fishbone, I+O VS, Fishbone, I+O Vital Signs Date Time Temp Pulse Resp B/P (MAP) Pulse Ox O2 Delivery O2 Flow Rate FiO2 02/08/20 08:16 20 02/08/20 08:11 80 120/68 02/08/20 06:00 97.8 20 Nasal Cannula 2.0 I&O- Last 24 Hours up to 6 AM 02/08/20 06:00 Intake Total 1620 ml Output Total 900 ml Balance 720 ml BREANNE CONNELLY MD Feb 08, 2020 10:10
[2020-02-08] MEDS: GABAPENTIN 100 MG CAP PO SCH ×2 (10:53→20:18)
[2020-02-08] MEDS: rOPINIRole 1MG TAB PO SCH (16:59)
[2020-02-08] MEDS: NORTRIPTYLINE 25 MG CAP PO SCH (20:17)
[2020-02-08] MEDS: DONEPEZIL 5 MG TAB PO SCH (20:18)
[2020-02-08] MEDS: ATORVASTATIN 20 MG TAB PO SCH (20:18)
[2020-02-08] MEDS: LATANOPROST 0.005% OPHTH SOLN 2.5 ML OU SCH (20:21)
[2020-02-09] MEDS: PERCOCET 5MG/325MG TAB PO PRN ×5 (02:33→20:26)
[2020-02-09 06:00] VITALS: BP_SYST 117; BP_SYST 96; BP_DIAS 64; BP_DIAS 81
[2020-02-09 07:13] LABS: BASO % 0.6 % (0.0-1.0); EOS # 0.5 10^3/uL (0.0-0.5); EOS % 6.4 % (0.0-3.0); HEMATOCRIT 37.9 % (36.0-47.0); HEMOGLOBIN 11.9 g/dl (12.0-15.5); LYMPH # 4.3 10^3/uL (1.5-5.0); LYMPH % 60.7 % (24.0-44.0); MEAN CORPUSCULAR HEMOGLOBIN 29.2 pg (27.0-33.0); MEAN CORPUSCULAR HGB CONC 31.4 g/dl (32.0-36.5); MEAN CORPUSCULAR VOLUME 92.9 fl (80.0-96.0); MONO # 0.5 10^3/uL (0.0-0.8); MONO % 7.7 % (0.0-5.0); NEUTROPHILS # 1.7 10^3/uL (1.5-8.5); NEUTROPHILS % 24.3 % (36.0-66.0); PLATELET COUNT, AUTOMATED 268 10^3/uL (150-450); RED BLOOD COUNT 4.08 10^6/uL (4.00-5.40)
[2020-02-09 07:36] LABS: BLOOD UREA NITROGEN 16 MG/DL (7-18); CARBON DIOXIDE LEVEL 25 MEQ/L (21-32); CHLORIDE LEVEL 110 MEQ/L (98-107); CREATININE FOR GFR 0.85 MG/DL (0.55-1.30); GLOMERULAR FILTRATION RATE > 60.0 (>39); GLUCOSE, FASTING 97 MG/DL (70-100); POTASSIUM SERUM 4.4 MEQ/L (3.5-5.1); SODIUM LEVEL 139 MEQ/L (136-145)
[2020-02-09] MEDS: SENOKOT S TAB PO SCH ×2 (11:33→20:26)
[2020-02-09] MEDS: OMEPRAZOLE 20 MG CAP PO SCH (11:33)
[2020-02-09] MEDS: QUEtiapine FUMARATE 100 MG TAB PO SCH ×2 (11:33→20:26)
[2020-02-09] MEDS: FLUTICASONE PROP 0.05% NASAL SPRAY 16 GM (FLONASE) NARES SCH (11:34)
[2020-02-09] MEDS: QUEtiapine FUMARATE 50 MG TAB PO SCH ×2 (11:34→20:26)
[2020-02-09] MEDS: QUEtiapine FUMARATE 25 MG TAB PO SCH ×2 (11:34→20:27)
[2020-02-09] MEDS: CARVedilol 6.25 MG TAB PO SCH ×2 (11:34→20:29)
[2020-02-09] MEDS: oxyBUTYnin 5 MG TAB PO SCH ×2 (11:35→20:25)
[2020-02-09] MEDS: DICLOFENAC EPOLAMINE 1.3 % PATCH TOP SCH ×2 (11:35→20:27)
[2020-02-09] MEDS: DULoxetine 30 MG CAP (CYMBALTA) PO SCH (11:39)
[2020-02-09] MEDS: GABAPENTIN 100 MG CAP PO SCH ×2 (11:39→20:25)
[2020-02-09] MEDS: HEPARIN SOD (PORCINE) 5000UNITS/ML VIAL (J1644 PER 1000UNITS) SC SCH ×2 (11:41→20:26)
[2020-02-09] MEDS: ACETAMINOPHEN TAB 650MG DOSE (2X325MG) PO PRN (16:09)
[2020-02-09] MEDS: rOPINIRole 1MG TAB PO SCH (18:31)
[2020-02-09] MEDS: ATORVASTATIN 20 MG TAB PO SCH (20:25)
[2020-02-09] MEDS: NORTRIPTYLINE 25 MG CAP PO SCH (20:25)
[2020-02-09] MEDS: DONEPEZIL 5 MG TAB PO SCH (20:27)
[2020-02-09] MEDS: LATANOPROST 0.005% OPHTH SOLN 2.5 ML OU SCH (20:27)
[2020-02-10] MEDS: PERCOCET 5MG/325MG TAB PO PRN ×5 (01:34→21:10)
[2020-02-10 06:00] VITALS: BP 120/80
--- NOTE | 2020-02-10 09:38 | MHCR ---
DATE OF CONSULTATION: 02/09/2020 HISTORY OF PRESENT ILLNESS: This consult is done via telepsychiatry due to the current Coronavirus crisis. This is a 74-year-old woman admitted to the hospital after she fell and hurt her shoulder, with a history of mild dementia, bipolar disorder, posttraumatic stress disorder (PTSD), with a history of being stable from a psychiatric point of view for a very long time on Cymbalta 60 mg daily, Seroquel 175 mg twice a day, and Aricept 10 mg daily. The patient also has a history of mild dementia. The patient had been living with her daughter, they are not getting along, and at this point she has been having many recent falls and so she has been accepted into a assisted, but they requested that a psychiatric consult be done due to the patient's history. The patient was very pleasant and cooperative throughout the evaluation. Indeed, she told me she was diagnosed with bipolar disorder and PTSD and treated with the current noted above medications and stable for many years. She tells me that her mood is good, her sleep and her appetite is good. I am not eliciting any mood symptoms. She says that she actually is looking forward to going to this assisted, that she spoke with the director, and that she really thinks this is going to be a good fit for her. 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 PAST PSYCHIATRIC HISTORY: The patient did say that many years ago she was hospitalized in a psychiatric hospital which is when she was diagnosed. She has never made any suicidal attempts. She has no history of mutilation. FAMILY HISTORY: There is no psychiatric illness in the family. SUBSTANCE ABUSE HISTORY: She denies any substance abuse history in the family. There is no history of suicides in the family. MEDICAL HISTORY: She does have many medical problems to include hypertension and cardiomyopathy. She is considered to be medically stable at this point according to her primary provider which is why she is supposed to be going on Tuesday to the assisted. MENTAL STATUS EXAMINATION: She is alert and oriented times three. She is pleasant. She is cooperative. She is verbally spontaneous. There is no formal thought disorder noted. Her mood is good. Her affect is full range and appropriate. She is not psychotic, suicidal, or homicidal. I actually did not elicit much of a memory deficit. She was able to remember three out of three words immediately and in 5 minutes and she could spell world forward and backward. She could tell me the name of the president. She could name parts of objects. She could tell me the state that we are in. She was able to follow short commands and complex commands and basically I did not really find any mental deficits, although she has a history of mild dementia. DIAGNOSES: 1. Bipolar disorder by history. 2. Posttraumatic stress disorder (PTSD) by history. 3. Mild dementia by history. TREATMENT PLAN: At this point, the patient is stable from a psychiatric point of view and it seems that she is stable on her current medications of Cymbalta, Seroquel, and Aricept and those should be continued.
[2020-02-10] MEDS: DICLOFENAC EPOLAMINE 1.3 % PATCH TOP SCH ×2 (09:39→21:09)
[2020-02-10] MEDS: QUEtiapine FUMARATE 100 MG TAB PO SCH ×2 (09:40→21:11)
[2020-02-10] MEDS: oxyBUTYnin 5 MG TAB PO SCH ×2 (09:40→21:11)
[2020-02-10] MEDS: DULoxetine 30 MG CAP (CYMBALTA) PO SCH (09:40)
[2020-02-10] MEDS: SENOKOT S TAB PO SCH ×2 (09:40→21:11)
[2020-02-10] MEDS: QUEtiapine FUMARATE 50 MG TAB PO SCH ×2 (09:40→21:11)
[2020-02-10] MEDS: CARVedilol 6.25 MG TAB PO SCH ×2 (09:40→21:12)
[2020-02-10] MEDS: HEPARIN SOD (PORCINE) 5000UNITS/ML VIAL (J1644 PER 1000UNITS) SC SCH ×2 (09:40→21:10)
[2020-02-10] MEDS: FLUTICASONE PROP 0.05% NASAL SPRAY 16 GM (FLONASE) NARES SCH (09:41)
[2020-02-10] MEDS: OMEPRAZOLE 20 MG CAP PO SCH (09:41)
[2020-02-10] MEDS: GABAPENTIN 100 MG CAP PO SCH ×2 (09:41→21:11)
[2020-02-10] MEDS: QUEtiapine FUMARATE 25 MG TAB PO SCH ×2 (09:41→21:11)
[2020-02-10] MEDS: MIRALAX *UNIT DOSE* 17GM PACKET PO PRN (11:27)
[2020-02-10] MEDS: rOPINIRole 1MG TAB PO SCH (17:05)
[2020-02-10] MEDS: NORTRIPTYLINE 25 MG CAP PO SCH (21:09)
[2020-02-10] MEDS: DONEPEZIL 5 MG TAB PO SCH (21:11)
[2020-02-10] MEDS: ATORVASTATIN 20 MG TAB PO SCH (21:11)
[2020-02-10] MEDS: LATANOPROST 0.005% OPHTH SOLN 2.5 ML OU SCH (21:12)
[2020-02-11] MEDS: PERCOCET 5MG/325MG TAB PO PRN ×6 (01:25→23:36)
[2020-02-11 06:00] VITALS: BP 117/71
[2020-02-11] MEDS: DICLOFENAC EPOLAMINE 1.3 % PATCH TOP SCH ×2 (09:07→20:00)
[2020-02-11] MEDS: QUEtiapine FUMARATE 100 MG TAB PO SCH ×2 (09:08→20:01)
[2020-02-11] MEDS: CARVedilol 6.25 MG TAB PO SCH ×2 (09:08→20:02)
[2020-02-11] MEDS: HEPARIN SOD (PORCINE) 5000UNITS/ML VIAL (J1644 PER 1000UNITS) SC SCH ×2 (09:08→20:01)
[2020-02-11] MEDS: SENOKOT S TAB PO SCH ×2 (09:08→20:00)
[2020-02-11] MEDS: GABAPENTIN 100 MG CAP PO SCH ×2 (09:08→20:01)
[2020-02-11] MEDS: QUEtiapine FUMARATE 25 MG TAB PO SCH ×2 (09:08→20:01)
[2020-02-11] MEDS: DULoxetine 30 MG CAP (CYMBALTA) PO SCH (09:08)
[2020-02-11] MEDS: OMEPRAZOLE 20 MG CAP PO SCH (09:08)
[2020-02-11] MEDS: QUEtiapine FUMARATE 50 MG TAB PO SCH ×2 (09:08→20:01)
[2020-02-11] MEDS: FLUTICASONE PROP 0.05% NASAL SPRAY 16 GM (FLONASE) NARES SCH (09:09)
[2020-02-11] MEDS: oxyBUTYnin 5 MG TAB PO SCH ×2 (09:09→20:01)
[2020-02-11] MEDS: MIRALAX *UNIT DOSE* 17GM PACKET PO PRN (10:22)
[2020-02-11] MEDS: rOPINIRole 1MG TAB PO SCH (18:17)
[2020-02-11] MEDS: NORTRIPTYLINE 25 MG CAP PO SCH (20:00)
[2020-02-11] MEDS: DONEPEZIL 5 MG TAB PO SCH (20:00)
[2020-02-11] MEDS: ATORVASTATIN 20 MG TAB PO SCH (20:01)
[2020-02-11] MEDS: LATANOPROST 0.005% OPHTH SOLN 2.5 ML OU SCH (20:01)
[2020-02-12 06:00] VITALS: BP 130/80
[2020-02-12] MEDS: PERCOCET 5MG/325MG TAB PO PRN ×4 (06:11→19:54)
[2020-02-12] MEDS: DULoxetine 30 MG CAP (CYMBALTA) PO SCH (09:30)
[2020-02-12] MEDS: DICLOFENAC EPOLAMINE 1.3 % PATCH TOP SCH ×2 (09:30→21:27)
[2020-02-12] MEDS: HEPARIN SOD (PORCINE) 5000UNITS/ML VIAL (J1644 PER 1000UNITS) SC SCH ×2 (09:30→21:26)
[2020-02-12] MEDS: QUEtiapine FUMARATE 50 MG TAB PO SCH ×2 (09:31→21:26)
[2020-02-12] MEDS: QUEtiapine FUMARATE 100 MG TAB PO SCH ×2 (09:31→21:26)
[2020-02-12] MEDS: QUEtiapine FUMARATE 25 MG TAB PO SCH ×2 (09:31→21:25)
[2020-02-12] MEDS: SENOKOT S TAB PO SCH ×2 (09:31→21:26)
[2020-02-12] MEDS: GABAPENTIN 100 MG CAP PO SCH ×2 (09:31→21:26)
[2020-02-12] MEDS: OMEPRAZOLE 20 MG CAP PO SCH (09:31)
[2020-02-12] MEDS: oxyBUTYnin 5 MG TAB PO SCH ×2 (09:31→21:26)
[2020-02-12] MEDS: CARVedilol 6.25 MG TAB PO SCH ×2 (09:33→21:26)
[2020-02-12] MEDS: FLUTICASONE PROP 0.05% NASAL SPRAY 16 GM (FLONASE) NARES SCH (09:35)
[2020-02-12] MEDS: rOPINIRole 1MG TAB PO SCH (18:27)
[2020-02-12] MEDS: NORTRIPTYLINE 25 MG CAP PO SCH (21:25)
[2020-02-12] MEDS: DONEPEZIL 5 MG TAB PO SCH (21:26)
[2020-02-12] MEDS: ATORVASTATIN 20 MG TAB PO SCH (21:26)
[2020-02-12] MEDS: LATANOPROST 0.005% OPHTH SOLN 2.5 ML OU SCH (21:27)
[2020-02-13] MEDS: PERCOCET 5MG/325MG TAB PO PRN ×6 (00:01→21:23)
--- NOTE | 2020-02-13 00:29 | ECGEPIP ---
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
[2020-02-13 06:00] VITALS: BP 123/77
[2020-02-13] MEDS: DICLOFENAC EPOLAMINE 1.3 % PATCH TOP SCH ×2 (08:54→21:22)
[2020-02-13] MEDS: QUEtiapine FUMARATE 50 MG TAB PO SCH ×2 (08:55→21:20)
[2020-02-13] MEDS: CARVedilol 6.25 MG TAB PO SCH ×2 (08:55→21:19)
[2020-02-13] MEDS: DULoxetine 30 MG CAP (CYMBALTA) PO SCH (08:55)
[2020-02-13] MEDS: SENOKOT S TAB PO SCH ×2 (08:55→21:19)
[2020-02-13] MEDS: GABAPENTIN 100 MG CAP PO SCH ×2 (08:55→21:20)
[2020-02-13] MEDS: oxyBUTYnin 5 MG TAB PO SCH ×2 (08:55→21:20)
[2020-02-13] MEDS: HEPARIN SOD (PORCINE) 5000UNITS/ML VIAL (J1644 PER 1000UNITS) SC SCH ×2 (08:55→21:21)
[2020-02-13] MEDS: QUEtiapine FUMARATE 25 MG TAB PO SCH ×2 (08:55→21:20)
[2020-02-13] MEDS: OMEPRAZOLE 20 MG CAP PO SCH (08:55)
[2020-02-13] MEDS: FLUTICASONE PROP 0.05% NASAL SPRAY 16 GM (FLONASE) NARES SCH (08:56)
[2020-02-13] MEDS: QUEtiapine FUMARATE 100 MG TAB PO SCH ×2 (08:56→21:20)
[2020-02-13] MEDS: rOPINIRole 1MG TAB PO SCH (17:03)
[2020-02-13] MEDS: NORTRIPTYLINE 25 MG CAP PO SCH (21:20)
[2020-02-13] MEDS: DONEPEZIL 5 MG TAB PO SCH (21:20)
[2020-02-13] MEDS: ATORVASTATIN 20 MG TAB PO SCH (21:21)
[2020-02-13] MEDS: LATANOPROST 0.005% OPHTH SOLN 2.5 ML OU SCH (21:22)
[2020-02-14] MEDS: PERCOCET 5MG/325MG TAB PO PRN ×5 (02:53→18:24)
[2020-02-14 06:00] VITALS: BP 111/75
[2020-02-14] MEDS: QUEtiapine FUMARATE 25 MG TAB PO SCH ×2 (08:54→20:29)
[2020-02-14] MEDS: OMEPRAZOLE 20 MG CAP PO SCH (08:54)
[2020-02-14] MEDS: SENOKOT S TAB PO SCH ×2 (08:54→20:28)
[2020-02-14] MEDS: DULoxetine 30 MG CAP (CYMBALTA) PO SCH (08:54)
[2020-02-14] MEDS: QUEtiapine FUMARATE 50 MG TAB PO SCH ×2 (08:54→20:28)
[2020-02-14] MEDS: QUEtiapine FUMARATE 100 MG TAB PO SCH ×2 (08:54→20:28)
[2020-02-14] MEDS: oxyBUTYnin 5 MG TAB PO SCH ×2 (08:54→20:29)
[2020-02-14] MEDS: GABAPENTIN 100 MG CAP PO SCH ×2 (08:54→20:29)
[2020-02-14] MEDS: DICLOFENAC EPOLAMINE 1.3 % PATCH TOP SCH ×2 (08:55→20:28)
[2020-02-14] MEDS: HEPARIN SOD (PORCINE) 5000UNITS/ML VIAL (J1644 PER 1000UNITS) SC SCH ×2 (08:55→20:31)
[2020-02-14] MEDS: CARVedilol 6.25 MG TAB PO SCH ×2 (08:55→20:32)
[2020-02-14] MEDS: FLUTICASONE PROP 0.05% NASAL SPRAY 16 GM (FLONASE) NARES SCH (08:56)
[2020-02-14] MEDS: MIRALAX *UNIT DOSE* 17GM PACKET PO PRN (08:57)
[2020-02-14] MEDS: rOPINIRole 1MG TAB PO SCH (18:24)
[2020-02-14] MEDS: NORTRIPTYLINE 25 MG CAP PO SCH (20:27)
[2020-02-14] MEDS: ATORVASTATIN 20 MG TAB PO SCH (20:28)
[2020-02-14] MEDS: DONEPEZIL 5 MG TAB PO SCH (20:29)
[2020-02-14] MEDS: LATANOPROST 0.005% OPHTH SOLN 2.5 ML OU SCH (20:31)
[2020-02-15] MEDS: PERCOCET 5MG/325MG TAB PO PRN ×6 (00:05→22:43)
[2020-02-15 06:00] VITALS: BP 127/76
[2020-02-15] MEDS: HEPARIN SOD (PORCINE) 5000UNITS/ML VIAL (J1644 PER 1000UNITS) SC SCH ×2 (08:44→21:34)
[2020-02-15] MEDS: DICLOFENAC EPOLAMINE 1.3 % PATCH TOP SCH ×2 (08:44→21:35)
[2020-02-15] MEDS: oxyBUTYnin 5 MG TAB PO SCH ×2 (08:45→21:32)
[2020-02-15] MEDS: GABAPENTIN 100 MG CAP PO SCH ×2 (08:45→21:33)
[2020-02-15] MEDS: QUEtiapine FUMARATE 25 MG TAB PO SCH ×2 (08:45→21:33)
[2020-02-15] MEDS: QUEtiapine FUMARATE 50 MG TAB PO SCH ×2 (08:45→21:33)
[2020-02-15] MEDS: SENOKOT S TAB PO SCH ×2 (08:45→21:34)
[2020-02-15] MEDS: OMEPRAZOLE 20 MG CAP PO SCH (08:45)
[2020-02-15] MEDS: CARVedilol 6.25 MG TAB PO SCH ×2 (08:46→21:33)
[2020-02-15] MEDS: DULoxetine 30 MG CAP (CYMBALTA) PO SCH (08:46)
[2020-02-15] MEDS: QUEtiapine FUMARATE 100 MG TAB PO SCH ×2 (08:47→21:33)
[2020-02-15] MEDS: FLUTICASONE PROP 0.05% NASAL SPRAY 16 GM (FLONASE) NARES SCH (08:48)
[2020-02-15] MEDS: rOPINIRole 1MG TAB PO SCH (18:01)
[2020-02-15] MEDS: DONEPEZIL 5 MG TAB PO SCH (21:33)
[2020-02-15] MEDS: ATORVASTATIN 20 MG TAB PO SCH (21:34)
[2020-02-15] MEDS: NORTRIPTYLINE 25 MG CAP PO SCH (21:34)
[2020-02-15] MEDS: LATANOPROST 0.005% OPHTH SOLN 2.5 ML OU SCH (21:34)
[2020-02-16] MEDS: PERCOCET 5MG/325MG TAB PO PRN ×5 (03:32→21:33)
[2020-02-16 06:00] VITALS: BP 110/2
[2020-02-16] MEDS: GABAPENTIN 100 MG CAP PO SCH ×2 (08:14→20:50)
[2020-02-16] MEDS: DULoxetine 30 MG CAP (CYMBALTA) PO SCH (08:15)
[2020-02-16] MEDS: SENOKOT S TAB PO SCH ×2 (08:15→20:49)
[2020-02-16] MEDS: QUEtiapine FUMARATE 25 MG TAB PO SCH ×2 (08:15→20:50)
[2020-02-16] MEDS: OMEPRAZOLE 20 MG CAP PO SCH (08:15)
[2020-02-16] MEDS: oxyBUTYnin 5 MG TAB PO SCH ×2 (08:15→20:51)
[2020-02-16] MEDS: FLUTICASONE PROP 0.05% NASAL SPRAY 16 GM (FLONASE) NARES SCH (08:16)
[2020-02-16] MEDS: DICLOFENAC EPOLAMINE 1.3 % PATCH TOP SCH ×2 (08:16→20:49)
[2020-02-16] MEDS: QUEtiapine FUMARATE 50 MG TAB PO SCH ×2 (08:16→20:50)
[2020-02-16] MEDS: HEPARIN SOD (PORCINE) 5000UNITS/ML VIAL (J1644 PER 1000UNITS) SC SCH ×2 (08:16→20:49)
[2020-02-16] MEDS: CARVedilol 6.25 MG TAB PO SCH ×2 (08:16→20:51)
[2020-02-16] MEDS: QUEtiapine FUMARATE 100 MG TAB PO SCH ×2 (08:16→20:50)
[2020-02-16] MEDS: rOPINIRole 1MG TAB PO SCH (17:23)
[2020-02-16] MEDS: NORTRIPTYLINE 25 MG CAP PO SCH (20:50)
[2020-02-16] MEDS: ATORVASTATIN 20 MG TAB PO SCH (20:50)
[2020-02-16] MEDS: DONEPEZIL 5 MG TAB PO SCH (20:50)
[2020-02-16] MEDS: LATANOPROST 0.005% OPHTH SOLN 2.5 ML OU SCH (20:51)
[2020-02-17] MEDS: ACETAMINOPHEN TAB 650MG DOSE (2X325MG) PO PRN (00:37)
[2020-02-17] MEDS: PERCOCET 5MG/325MG TAB PO PRN ×5 (02:14→21:12)
[2020-02-17 06:00] VITALS: BP 128/74
[2020-02-17] MEDS: CARVedilol 6.25 MG TAB PO SCH ×2 (08:27→21:15)
[2020-02-17] MEDS: DULoxetine 30 MG CAP (CYMBALTA) PO SCH (08:27)
[2020-02-17] MEDS: OMEPRAZOLE 20 MG CAP PO SCH (08:28)
[2020-02-17] MEDS: HEPARIN SOD (PORCINE) 5000UNITS/ML VIAL (J1644 PER 1000UNITS) SC SCH ×2 (08:28→21:12)
[2020-02-17] MEDS: SENOKOT S TAB PO SCH ×2 (08:28→21:11)
[2020-02-17] MEDS: QUEtiapine FUMARATE 50 MG TAB PO SCH ×2 (08:28→21:11)
[2020-02-17] MEDS: oxyBUTYnin 5 MG TAB PO SCH ×2 (08:28→21:11)
[2020-02-17] MEDS: QUEtiapine FUMARATE 100 MG TAB PO SCH ×2 (08:28→21:11)
[2020-02-17] MEDS: GABAPENTIN 100 MG CAP PO SCH ×2 (08:28→21:10)
[2020-02-17] MEDS: DICLOFENAC EPOLAMINE 1.3 % PATCH TOP SCH ×2 (08:28→21:12)
[2020-02-17] MEDS: FLUTICASONE PROP 0.05% NASAL SPRAY 16 GM (FLONASE) NARES SCH (08:28)
[2020-02-17] MEDS: QUEtiapine FUMARATE 25 MG TAB PO SCH ×2 (08:28→21:11)
[2020-02-17] MEDS ORDERED: MAALOX 30 ML SUSP *UDC PO PRN (12:45)
[2020-02-17] MEDS: rOPINIRole 1MG TAB PO SCH (17:34)
[2020-02-17] MEDS: ATORVASTATIN 20 MG TAB PO SCH (21:10)
[2020-02-17] MEDS: DONEPEZIL 5 MG TAB PO SCH (21:11)
[2020-02-17] MEDS: NORTRIPTYLINE 25 MG CAP PO SCH (21:11)
[2020-02-17] MEDS: LATANOPROST 0.005% OPHTH SOLN 2.5 ML OU SCH (21:12)
[2020-02-18] MEDS: PERCOCET 5MG/325MG TAB PO PRN ×5 (02:03→20:11)
[2020-02-18] MEDS: ACETAMINOPHEN TAB 650MG DOSE (2X325MG) PO PRN (04:42)
[2020-02-18] MEDS: oxyBUTYnin 5 MG TAB PO SCH ×2 (09:25→20:08)
[2020-02-18] MEDS: FLUTICASONE PROP 0.05% NASAL SPRAY 16 GM (FLONASE) NARES SCH (09:25)
[2020-02-18] MEDS: DULoxetine 30 MG CAP (CYMBALTA) PO SCH (09:25)
[2020-02-18] MEDS: OMEPRAZOLE 20 MG CAP PO SCH (09:25)
[2020-02-18] MEDS: HEPARIN SOD (PORCINE) 5000UNITS/ML VIAL (J1644 PER 1000UNITS) SC SCH ×2 (09:26→20:11)
[2020-02-18] MEDS: QUEtiapine FUMARATE 25 MG TAB PO SCH ×2 (09:26→20:08)
[2020-02-18] MEDS: DICLOFENAC EPOLAMINE 1.3 % PATCH TOP SCH ×2 (09:26→20:07)
[2020-02-18] MEDS: QUEtiapine FUMARATE 50 MG TAB PO SCH ×2 (09:26→20:08)
[2020-02-18] MEDS: QUEtiapine FUMARATE 100 MG TAB PO SCH ×2 (09:26→20:08)
[2020-02-18] MEDS: SENOKOT S TAB PO SCH ×2 (09:26→20:08)
[2020-02-18] MEDS: GABAPENTIN 100 MG CAP PO SCH ×2 (09:26→20:08)
[2020-02-18] MEDS: CARVedilol 6.25 MG TAB PO SCH ×2 (09:27→20:10)
[2020-02-18] MEDS: rOPINIRole 1MG TAB PO SCH (17:58)
[2020-02-18] MEDS: DONEPEZIL 5 MG TAB PO SCH (20:08)
[2020-02-18] MEDS: ATORVASTATIN 20 MG TAB PO SCH (20:10)
[2020-02-18] MEDS: NORTRIPTYLINE 25 MG CAP PO SCH (20:10)
[2020-02-18] MEDS: LATANOPROST 0.005% OPHTH SOLN 2.5 ML OU SCH (20:11)
[2020-02-19] MEDS: PERCOCET 5MG/325MG TAB PO PRN ×2 (03:42→10:07)
[2020-02-19 06:00] VITALS: BP 109/69
[2020-02-19] MEDS: oxyBUTYnin 5 MG TAB PO SCH (10:06)
[2020-02-19] MEDS: SENOKOT S TAB PO SCH (10:06)
[2020-02-19] MEDS: QUEtiapine FUMARATE 100 MG TAB PO SCH (10:06)
[2020-02-19] MEDS: GABAPENTIN 100 MG CAP PO SCH (10:07)
[2020-02-19] MEDS: DULoxetine 30 MG CAP (CYMBALTA) PO SCH (10:07)
[2020-02-19] MEDS: QUEtiapine FUMARATE 25 MG TAB PO SCH (10:07)
[2020-02-19 10:08] VITALS: BP 127/86
[2020-02-19] MEDS: HEPARIN SOD (PORCINE) 5000UNITS/ML VIAL (J1644 PER 1000UNITS) SC SCH (10:08)
[2020-02-19] MEDS: OMEPRAZOLE 20 MG CAP PO SCH (10:08)
[2020-02-19] MEDS: QUEtiapine FUMARATE 50 MG TAB PO SCH (10:08)
[2020-02-19] MEDS: FLUTICASONE PROP 0.05% NASAL SPRAY 16 GM (FLONASE) NARES SCH (10:08)
[2020-02-19] MEDS: DICLOFENAC EPOLAMINE 1.3 % PATCH TOP SCH (10:08)
[2020-02-19] MEDS: CARVedilol 6.25 MG TAB PO SCH (10:08)
[2020-02-19] MEDS ORDERED: Latanoprost 0.005% Op Soln OU (11:15)
[2020-02-19] MEDS ORDERED: ACET1TAB55 PO (11:15)
[2020-02-19] MEDS ORDERED: GABA-1171 PO (11:15)
[2020-02-19] MEDS ORDERED: SENN-52 PO (11:16)
[2020-02-19] MEDS ORDERED: PERCOCET PO (11:16)
[2020-02-19] MEDS ORDERED: OXYB5TAB10 PO (11:16)
[2020-02-19] MEDS ORDERED: PEG1POW PO (11:16)
[2020-02-19] MEDS ORDERED: DICL1PAT6 TOP (11:22)
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
== END 2020-02-19 13:02 | DRG 92 ==
LOC: M ED 20:40 → M ED INP 01-22 01:01 → ENRESERV 01-22 01:10 → M MSPAV 01-22 01:40
PROVIDERS: ADMIT Internal Medicine; ATTEND Internal Medicine
DX: R29.6 Repeated falls (principal); F03.91 Unspecified dementia, unspecified severity, with behavioral disturbance; I51.81 Takotsubo syndrome; E11.9 Type 2 diabetes mellitus without complications; F43.10 Post-traumatic stress disorder, unspecified; E78.5 Hyperlipidemia, unspecified; K59.00 Constipation, unspecified; G25.81 Restless legs syndrome; D50.9 Iron deficiency anemia, unspecified; F31.9 Bipolar disorder, unspecified; F42.3 Hoarding disorder; M54.5 Low back pain; M54.2 Cervicalgia; E55.9 Vitamin D deficiency, unspecified; H40.9 Unspecified glaucoma; K21.9 Gastro-esophageal reflux disease without esophagitis; Z79.899 Other long term (current) drug therapy; Z88.8 Allergy status to other drugs, medicaments and biological substances